=== PATIENT | male | born 1980 | race Caucasian/White ===

== ENCOUNTER 2019-02-17 23:17 | Emergency (ER) | payer MEDICARE, MEDICAID, SELFPAY ==
[2019-02-17 23:26] VITALS: BP 134/89; PULSE 146; RESP 18; O2SAT 97; BMI 30.7
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
[2019-02-18 02:32] VITALS: BP 132/84; PULSE 108; RESP 14; O2SAT 97
[2019-02-18] MEDS: tetanus-diphtheria tox (adult) 0.5 mL SDV IM (03:38)
[2019-02-18 06:01] VITALS: BP 128/82; PULSE 84; RESP 14; TEMP 36.6; O2SAT 99
== END 2019-02-18 05:58 | disposition home or self-care (01) ==
PROVIDERS: Emergency Provider Emergency Medicine
DX: S00.83XA Contusion of other part of head, initial encounter (principal); S40.022A Contusion of left upper arm, initial encounter; S40.021A Contusion of right upper arm, initial encounter; S80.12XA Contusion of left lower leg, initial encounter; S80.11XA Contusion of right lower leg, initial encounter; Y08.02XA Assault by strike by baseball bat, initial encounter; F17.210 Nicotine dependence, cigarettes, uncomplicated; Z23 Encounter for immunization
CPT/HCPCS: 70486; 73562; 90714; 96372; 99281

== ENCOUNTER 2019-07-06 20:02 | Inpatient (IN) | payer MEDICARE, MEDICAID, SELFPAY ==
[2019-07-06 20:03] VITALS: BP 124/83; PULSE 108; RESP 16; TEMP 37; O2SAT 93; BMI 27.8
--- NOTE | 2019-07-06 20:17 | W.ED.ANXIETY ---
HPI - Anxiety General: Chief Complaint: Anxiety Stated Complaint: ANXIETY/ STRESS Time Seen by Provider: 07/06/19 20:03 History of Present Illness: HPI narrative: Patient is a 39-year-old male who comes in today complaining of stress. He has had suicidal thoughts and yesterday took he says a handful of Tylenol PM in a suicide attempt. He cannot tell me exactly when he took it but it was sometime yesterday evening. He said he has had some nausea and has not felt great today but no specific abdominal pain or vomiting. He has not taken his regular medications today which include lisinopril and omeprazole. He is still having suicidal thoughts but denies doing anything else to harm himself. He is not having any thoughts of harming anyone else. complaint: anxiety Onset (ago): week(s) Severity: severe Quality: constant Provoking factors: emotional stress Relieving factors: nothing Exacerbating factors: nothing Associated symptoms: Reports other (Suicidal thoughts and an overdose); Deny chest pain, chills, fever(s), headache(s), malaise, nausea or vomiting Review of Systems General: Reports: 10 or more systems reviewed and unremarkable except in HPI and below Const: Denies: fever(s), chills, fatigue or malaise Eyes: Denies: change in vision ENMT: Denies: odynophagia Card: Denies: chest pain or swelling of feet/ankles Resp: Denies: dyspnea, productive cough or non-productive cough GI: Denies: abdominal pain, nausea or vomiting : Denies: flank pain Musc: Reports: joint pain (Both shoulders); Denies: neck pain or back pain Skin/Breast: Denies: rash Neuro: Denies: headache(s), numbness in extremities or weakness in extremities Psych: Reports: anxiety, depression, mood swings, sleeping less, irritability and suicidal ideation; Denies: homicidal ideation Chema/Lymph: Denies: easy bruising or easy bleeding PFSH ED PFSH: Social History Smoking and tobacco status: current every day smoker Physical Exam Const: COMMON NORMALS: no acute distress, patient oriented x3, no limitations and alert GENERAL APPEARANCE: cooperative and comfortable HENMT: HEAD & SCALP: normal to inspection FACE & SINUS: normal facial exam Eye: GENERAL EYE: appearance normal, both eyes and all related structures Neck/C-Spine: COMMON NORMALS: supple, no meningeal signs and no JVD Chest: COMMONS NORMALS: normal inspection of the chest Resp: COMMON NORMALS: normal respiratory effort, No use of accessory muscles and clear to auscultation bilaterally AUSCULTATION: clear to auscultation bilaterally Cardio: COMMON NORMALS: no JVD, regular rate, regular rhythm and No murmurs present (Cardio) RATE: regular rate RHYTHM: regular rhythm GI: COMMON NORMALS: Normal to inspection, nondistended, normoactive bowel sounds present, Soft to palpation and non-tender INSPECTION: Yes normal to inspection AUSCULTATION: Yes normoactive bowel sounds PALPATION: Yes Soft to palpation Back/Pelvis: COMMON NORMALS: thoracic and lumbar spine normal to inspection Extremity: COMMON NORMALS: normal to inspection Neuro: COMMON NORMALS: patient oriented x3, moves all extremities, no focal motor deficits and no sensory deficits noted SENSORIUM/ORIENTATION: Yes alert MENINGEAL SIGNS: Yes no meningeal signs Psych: COMMON NORMALS: mental status grossly normal, cooperative and speech normal ATTITUDE: Yes agitated ACTIVITY/MOTOR BEHAVIOR: Yes psychomotor agitation SPEECH: Yes normal speech Skin: COMMON NORMALS: no rashes or lesions noted and turgor normal GENERAL SKIN EXAM: no rashes or lesions noted and turgor normal Course ED course: Patient with suicidal ideation - voluntary admission. He shows no signs of acetaminophen toxicity from his reported ingestion last night. Admitted to the NPU to Dr. Mckeon. Vital Signs: Vital signs: Vital Signs Temperature 98.6 F 07/06/19 20:03 Pulse Rate 108 H 07/06/19 20:03 Respiratory Rate 16 07/06/19 20:03 Blood Pressure 124/83 07/06/19 20:03 Pulse Oximetry 93 07/06/19 20:03 MDM - Anxiety Lab Data: Labs: Lab Results 07/06/19 07/06/19 07/06/19 Range/Units 20:15 20:15 20:15 WBC 7.8 (4.0-10.0) 10^3/ uL RBC 5.08 (4.1-5.3) 10^6/u L Hgb 14.1 (11.7-16.6) g/dL Hct 43.1 (42.0-52.0) % MCV 84.8 (80-94) fL MCH 27.8 L (28.0-34.0) pg MCHC 32.7 (30.0-36.0) g/dL RDW 14.2 (12.1-15.1) % Plt Count 321 (130-400) 10^3/c mm MPV 9.2 (7.4-10.4) fL Neut % (Auto) 72.6 % Lymph % (Auto) 19.5 % [place] % (Auto) 6.6 % Eos % (Auto) 0.4 % Baso % (Auto) 0.6 % Neut # (Auto) 5.6 (1.8-7.7) 10^3/u L Lymph # (Auto) 1.5 (0.8-4.8) 10^3/u L [place] # (Auto) 0.5 (0.2-0.9) 10^3/u L Eos # (Auto) 0.0 (0.0-0.8) 10^3/u L Baso # (Auto) 0.1 (0.0-0.1) 10^3/u L Nucleated RBC % (a uto) 0 % Nucleated RBCs # 0.0 /100WBC PT 12.70 (10.5-13.3) SECO NDS INR 0.92 (0.8-1.2) Sodium 141 (136-145) mmol/L Potassium 3.9 (3.5-5.1) mmol/L Chloride 101 (98-107) mmol/L Carbon Dioxide 22 (22-29) mmol/L Anion Gap 21.9 H (5-19) BUN 25 H (6-20) mg/dL Creatinine 1.2 (0.7-1.2) mg/dL GFR Calculation 67.8 L (90-130) mL/min Glucose 138 H (65-115) mg/dL Calculated Osmolal ity 291 (285-295) mOsm/k g Calcium 9.7 (8.5-10.5) mg/dL Total Bilirubin 0.3 (0.15-1.2) mg/dL AST 49 H (0-40) U/L ALT 29 (0-41) U/L Alkaline Phosphata se 101 (40-130) IU/L Total Protein 7.8 (6.6-8.7) g/dL Albumin 5.0 (3.5-5.2) g/dL Globulin 2.8 (1.3-4.6) g/dL TSH 2.38 (0.27-4.20) uIU/ mL Urine Color (Yellow) Urine Appearance (CLEAR) Urine pH (5-7) Ur Specific Gravit y (1.005-1.030) Urine Protein (Negative) Urine Glucose (UA) (Normal) Urine Ketones (Negative) Urine Blood (Negative) Urine Nitrate (Negative) Urine Bilirubin (NEGATIVE) Urine Urobilinogen (Negative) mg/dL Ur Leukocyte Mariangel ase (Negative) Salicylates < 5.0 (3-10) mg/dL Urine Opiates Scre en (Negative) ng/mL Acetaminophen < 10.0 L (10-30) ug/mL Ur Barbiturates Sc reen (Negative) ng/mL Ur Phencyclidine S crn (Negative) ng/mL Ur Amphetamines Sc reen (Negative) ng/mL U Benzodiazepines Scrn (Negative) ng/mL Urine Cocaine Scre en (Negative) ng/mL U Marijuana (THC) Screen (Negative) ng/mL Ethyl Alcohol < 10 (0-10) mg/dL 07/06/19 07/06/19 Range/Units 20:44 20:44 WBC (4.0-10.0) 10^3/ uL RBC (4.1-5.3) 10^6/u L Hgb (11.7-16.6) g/dL Hct (42.0-52.0) % MCV (80-94) fL MCH (28.0-34.0) pg MCHC (30.0-36.0) g/dL RDW (12.1-15.1) % Plt Count (130-400) 10^3/c mm MPV (7.4-10.4) fL Neut % (Auto) % Lymph % (Auto) % [place] % (Auto) % Eos % (Auto) % Baso % (Auto) % Neut # (Auto) (1.8-7.7) 10^3/u L Lymph # (Auto) (0.8-4.8) 10^3/u L [place] # (Auto) (0.2-0.9) 10^3/u L Eos # (Auto) (0.0-0.8) 10^3/u L Baso # (Auto) (0.0-0.1) 10^3/u L Nucleated RBC % (a uto) % Nucleated RBCs # /100WBC PT (10.5-13.3) SECO NDS INR (0.8-1.2) Sodium (136-145) mmol/L Potassium (3.5-5.1) mmol/L Chloride (98-107) mmol/L Carbon Dioxide (22-29) mmol/L Anion Gap (5-19) BUN (6-20) mg/dL Creatinine (0.7-1.2) mg/dL GFR Calculation (90-130) mL/min Glucose (65-115) mg/dL Calculated Osmolal ity (285-295) mOsm/k g Calcium (8.5-10.5) mg/dL Total Bilirubin (0.15-1.2) mg/dL AST (0-40) U/L ALT (0-41) U/L Alkaline Phosphata se (40-130) IU/L Total Protein (6.6-8.7) g/dL Albumin (3.5-5.2) g/dL Globulin (1.3-4.6) g/dL TSH (0.27-4.20) uIU/ mL Urine Color Yellow (Yellow) Urine Appearance Clear (CLEAR) Urine pH 5 (5-7) Ur Specific Gravit y 1.025 (1.005-1.030) Urine Protein Neg (Negative) Urine Glucose (UA) Norm (Normal) Urine Ketones 1+ H (Negative) Urine Blood Neg (Negative) Urine Nitrate Negative (Negative) Urine Bilirubin Neg (NEGATIVE) Urine Urobilinogen Norm (Negative) mg/dL Ur Leukocyte Mariangel ase Negative (Negative) Salicylates (3-10) mg/dL Urine Opiates Scre en Negative (Negative) ng/mL Acetaminophen (10-30) ug/mL Ur Barbiturates Sc reen Negative (Negative) ng/mL Ur Phencyclidine S crn Negative (Negative) ng/mL Ur Amphetamines Sc reen Negative (Negative) ng/mL U Benzodiazepines Scrn Negative (Negative) ng/mL Urine Cocaine Scre en Negative (Negative) ng/mL U Marijuana (THC) Screen Negative (Negative) ng/mL Ethyl Alcohol (0-10) mg/dL Discharge Plan Discharge Prescriptions: No Action multivitamin Tablet 1 tab PO DAILY RF: 0 omeprazole 40 mg Capsule,Delayed Release(Dr/Ec) 40 mg PO DAILY RF: 0 lisinopril 10 mg Tablet 10 mg PO DAILY RF: 0 Claritin 10 mg Tablet 10 mg PO DAILY RF: 0 Coding Level of Care Code ED Sanding Machine Tender Automatic for Katelin Fwd Exam Comprehensive
[2019-07-06 20:22] LABS: Basophils # 0.1 10^3/uL (0.0-0.1); Basophils % 0.6 %; Eosinophils % 0.4 %; Hematocrit 43.1 % (42.0-52.0); Hemoglobin 14.1 g/dL (11.7-16.6); Lymphocytes # 1.5 10^3/uL (0.8-4.8); Lymphocytes % 19.5 %; Mean Corpuscular HGB Conc 32.7 g/dL (30.0-36.0); Mean Corpuscular Hemoglobin 27.8 pg (28.0-34.0); Mean Corpuscular Volume 84.8 fL (80-94); Mean Platelet Volume 9.2 fL (7.4-10.4); Monocytes # 0.5 10^3/uL (0.2-0.9); Monocytes % 6.6 %; Neutrophils # 5.6 10^3/uL (1.8-7.7); Neutrophils % 72.6 %; Nucleated Red Blood Cells % 0 %; Platelet Count 321 10^3/cmm (130-400); Red Blood Count 5.08 10^6/uL (4.1-5.3); Red Cell Distribution Width 14.2 % (12.1-15.1); White Blood Count 7.8 10^3/uL (4.0-10.0)
[2019-07-06 20:31] LABS: INR 0.92 (0.8-1.2)
[2019-07-06 20:39] LABS: Alanine Aminotransferase 29 U/L (0-41); Alkaline Phosphatase 101 IU/L (40-130); Chloride 101 mmol/L (98-107); Potassium 3.9 mmol/L (3.5-5.1); Sodium 141 mmol/L (136-145)
[2019-07-06 21:08] LABS: Add Urine Microscopic? NO
[2019-07-06 21:10] LABS: Anion Gap 21.9 (5-19); Aspartate Amino Transferase 49 U/L (0-40); Blood Urea Nitrogen 25 mg/dL (6-20); Calcium 9.7 mg/dL (8.5-10.5); Carbon Dioxide 22 mmol/L (22-29); Creatinine Clr Calc Pharmacy 96.1766; Globulin 2.8 g/dL (1.3-4.6); Glomerular Filtration Rate 67.8 mL/min (90-130); Glucose 138 mg/dL (65-115); Osmolality Calculated 291 mOsm/kg (285-295); Thyroid Stimulating Hormone 2.38 uIU/mL (0.27-4.20); Total Bilirubin 0.3 mg/dL (0.15-1.2); Total Protein 7.8 g/dL (6.6-8.7)
[2019-07-06 21:18] LABS: Alcohol Level < 10 mg/dL (0-10)
[2019-07-06 21:20] LABS: Acetaminophen < 10.0 ug/mL (10-30); Salicylate < 5.0 mg/dL (3-10)
[2019-07-06 21:21] LABS: Amphetamines Screen Urine Negative (Negative); Barbiturates Screen Urine Negative (Negative); Benzodiazepines Screen Urine Negative (Negative); Cocaine Screen Urine Negative (Negative); Opiate Screen Urine Negative (Negative); PCP Screen Urine Negative (Negative); THC Screen Urine Negative (Negative)
[2019-07-06 21:30] LABS: Blood Urine Neg (Negative); Glucose Urine UA Norm (Normal); Ketones Urine 1+ (Negative); Protein Urine Neg (Negative); Specific Gravity, Urine 1.025 (1.005-1.030); Urine Appearance Clear (CLEAR); Urine Color Yellow (Yellow); pH Urine 5 (5-7)
[2019-07-06 21:31] LABS: Bilirubin Urine Neg (NEGATIVE); Leukocyte Esterase Urine Negative (Negative); Nitrate Urine Negative (Negative); Urobilinogen Urine Norm (Negative)
[2019-07-06 22:11] VITALS: BP 125/87; PULSE 98; RESP 16; TEMP 37; O2SAT 93
[2019-07-06 22:31] VITALS: BP 125/80; PULSE 109; RESP 22; TEMP 37.2; O2SAT 95
[2019-07-07 06:00] VITALS: BP 123/78; PULSE 67; RESP 18; TEMP 36.6; O2SAT 98
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
[2019-07-07 13:59] VITALS: BP 119/80; PULSE 76; RESP 18; TEMP 36.6; O2SAT 98
[2019-07-07] MEDS: lamoTRIgine 25 mg Tablet PO (16:17)
[2019-07-07 22:00] VITALS: BP 123/79; PULSE 78; RESP 21; TEMP 36.8; O2SAT 98
[2019-07-08 06:00] VITALS: BP 115/73; PULSE 76; RESP 20; TEMP 36.4; O2SAT 97
[2019-07-08] MEDS: lamoTRIgine 25 mg Tablet PO (09:36)
[2019-07-08 14:00] VITALS: BP 133/76; PULSE 79; RESP 18; TEMP 36.9
--- NOTE | 2019-07-08 14:08 | P.PN_ITS ---
Subjective NPU Subjective: Interval history: Festus presents today reporting that he is doing okay. He denies any suicidal thoughts or intent and feels at this point that he is really adjusting to the medication. He reports that prior to hospitalization that physicians were exploring dizziness and that he is experiencing some dizziness that he thinks is related to the medication and not what was going on for. We agreed that we would take her time to evaluate that the medication is going to be functional for him. He reports that he is eating and sleeping okay. Mental Status Exam MSE Comments: This is an overweight versus obese white male with adequate dress, grooming and eye contact. No abnormal movements except for psychomotor retardation. Cooperative with exam in no acute distress. Speech was decreased rate and volume. Mood described as okay affect congruent. Thought process orga nized. Thought content: Patient denied any current suicidal or homicidal ideation, there were no delusions reported or noted, he denied any auditory or visual hallucinations. Attention and concentration appeared intact and memory appeared reliable but none were formally tested. He is alert and oriented x3. Insight and judgment are fair. Impulse control is questionable given the reported events of the previous day. Vitals/I&O/Wt Last Vital Signs Temp 97.6 F 07/08/19 06:00 Pulse 76 07/08/19 06:00 Resp 20 H 07/08/19 06:00 BP 115/73 07/08/19 06:00 Pulse Ox 97 07/08/19 06:00 Weight last 48 hrs Weight 98.94 kg Data NPU : 07/06/19 20:15 07/06/19 20:15 A&P Additional A&P Information (1) Depression: (2) Anxiety: (3) Adjustment disorder with mixed disturbance of emotions and conduct: This is a 39-year-old white male with a long history of inpatient hospitalizations, and mental health treatment without recent treatment who presents endorsing stress and desire to resume medications. 1. Continue current medications. 2. Continue every 15 minute checks for safety. 3. Encourage individual, group and milieu therapy. 4. We will continue evaluation for lethality and safety for discharge. Involuntary Hold Information 96 Hour Hold: 96 Hour Involuntary Admission: No Attestations NPU Medical Necessity Statement*: Inpatient hospitalization is medically necessary and the clinically appropriate intervention at this time. We will monitor medications and evaluate for changes. Likely length of stay 2-4 days. Coding Level of Care Code Acute Triage Licensed Practical Nurse for Katelin Roy
[2019-07-08 22:00] VITALS: BP 139/97; PULSE 68; RESP 17; TEMP 36.8; O2SAT 98
[2019-07-09 06:00] VITALS: BP 136/73; PULSE 75; RESP 16; TEMP 36.8; O2SAT 98
[2019-07-09] MEDS: lamoTRIgine 25 mg Tablet PO (08:47)
[2019-07-09 14:00] VITALS: BP 124/77; PULSE 66; RESP 18; TEMP 36.8; O2SAT 98
--- NOTE | 2019-07-09 14:49 | P.PN_ITS ---
Subjective NPU Subjective: Interval history: Festus presents today reporting that he is not feeling dizzy anymore but he does have a bit of a headache. He denies any other significant issues at this time. We discussed him following up with [facility]. He thinks they'll be really good idea discussed the risks benefits and alternatives of discharging him tomorrow and he understood and was agreeable with that plan. We once again reviewed the plan titration of Lamictal as well as covering the risk of Casey-Arash syndrome as the medication dose increases and what to do if he were to get a rash. Mental Status Exam MSE Comments: This is an overweight versus obese white male with adequate dress, grooming and eye contact. No abnormal movements except for resolving psychomotor retardation. Cooperative with exam in no acute distress. Speech was less decreased rate and volume. Mood described as a little better affect congruent. Thought process organized. Thought content: Patient denied any cu rrent suicidal or homicidal ideation, there were no delusions reported or noted, he denied any auditory or visual hallucinations. Attention and concentration appeared intact and memory appeared reliable but none were formally tested. He is alert and oriented x3. Insight and judgment are fair. Impulse control is improving. 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 1. Continue current medications. 2. Continue every 15 minute checks for safety. 3. Encourage individual, group and milieu therapy. 4. We will continue evaluation for lethality and safety for discharge. Involuntary Hold Information 96 Hour Hold: 96 Hour Involuntary Admission: No Attestations NPU Medical Necessity Statement*: Inpatient hospitalization is medically necessary and the clinically appropriate intervention at this time. We will monitor medications and evaluate for changes. Likely length of stay 1-3 days. Tentative discharge tomorrow. Coding Level of Care Code Acute Clinical Unit Coordinator for Katelin Roy
[2019-07-09] MEDS: hyDROXYzine 25 mg Capsule 50 MG PO (21:28)
[2019-07-09 21:41] VITALS: BP 138/88; PULSE 67; RESP 12; TEMP 36.7; O2SAT 98
[2019-07-10 06:00] VITALS: BP 143/89; PULSE 65; RESP 16; TEMP 36.6; O2SAT 98
[2019-07-10] MEDS: lamoTRIgine 25 mg Tablet PO (09:50)
--- NOTE | 2019-07-10 09:59 | PC.SOCIAL ---
Important Medicare Message Reviewed Important Medicare Message. Updated previously signed page 2 and gave new copy. Updated copy in chart.
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
[2019-07-10 13:52] VITALS: BP 143/89; PULSE 65; RESP 16; TEMP 36.6; O2SAT 98
== END 2019-07-10 14:30 | disposition home or self-care (01) | DRG 882 ==
LOC: ER 20:36 → NP 22:10
PROVIDERS: Emergency Medicine; Admitting Provider Psychiatry & Neurology Psychiatry; Visit Provider Psychiatry & Neurology Psychiatry
DX: F43.25 Adjustment disorder with mixed disturbance of emotions and conduct (principal); Z81.8 Family history of other mental and behavioral disorders; F17.210 Nicotine dependence, cigarettes, uncomplicated; F41.9 Anxiety disorder, unspecified; F32.9 Major depressive disorder, single episode, unspecified
CPT/HCPCS: 12345; 36415; 80053; 80306; 80307; 81003; 84443; 85025; 85610; 99282

== ENCOUNTER → 2019-07-21 10:48 | Outpatient (BNVA) | payer MEDICARE, MEDICAID, SELFPAY | PROVIDERS: Visit Provider Psychiatry & Neurology Psychiatry | DX: F33.9 Major depressive disorder, recurrent, unspecified (principal); F06.30 Mood disorder due to known physiological condition, unspecified; F43.25 Adjustment disorder with mixed disturbance of emotions and conduct; F41.9 Anxiety disorder, unspecified; F32.9 Major depressive disorder, single episode, unspecified; F34.9 Persistent mood [affective] disorder, unspecified; D51.0 Vitamin B12 deficiency anemia due to intrinsic factor deficiency | CPT/HCPCS: 99205 ==

== ENCOUNTER 2019-07-24 21:46 | Inpatient (IN) | payer MEDICARE, MEDICAID, SELFPAY ==
[2019-07-24 22:00] VITALS: BP 124/86; PULSE 95; RESP 18; TEMP 36.9; BMI 31.6
--- NOTE | 2019-07-24 22:10 | ED_ITS ---
HPI - Psych General: Chief Complaint: Psychiatric Symptoms Stated Complaint: si Time Seen by Provider: 07/24/19 22:06 Source: patient Mode of arrival: ambulatory Limitations: no limitations History of Present Illness: HPI Narrative: 39-year-old male states he has had increased depression and has had suicidal thoughts. He has no specific plan. Patient denies any worsening or improving factors. He states he has not been taking his meds for the last 2 days. MD complaint: suicidal ideation Onset (ago): hour(s) Relieving factors: none Exacerbating factors: none Associated symptoms: Reports depression and suicidal ideation Review of Systems Const: Denies: fever(s), chills, body aches or change in appetite Eyes: Denies: blurry vision or eye discomfort ENMT: Denies: throat pain or dental pain Card: Denies: chest pain Resp: Denies: dyspnea GI: Denies: abdominal pain, nausea, vomiting or diarrhea : Denies: dysuria Musc: Denies: neck pain or back pain Skin/Breast: Denies: rash Neuro: Denies: headache(s) Psych: Reports: depression and suicidal ideation Chema/Lymph: Denies: easy bruising All/Imm: Denies: urticaria PFSH ED PFSH: Social History Smoking and tobacco status: former smoker Current gender identity: Male Physical Exam Const: COMMON NORMALS: no acute distress, patient oriented x3 and healthy appearing HENMT: COMMON NORMALS: normocephalic and atraumatic HEAD & SCALP: normocephalic and atraumatic Eye: COMMON NORMALS: Equal, round and reactive pupils present and EOMs intact bilaterally PUPIL: Yes Equal, round and reactive pupils present Neck/C-Spine: COMMON NORMALS: full ROM and supple Chest: COMMONS NORMALS: normal inspection of the chest and normal palpation of entire chest wall Resp: COMMON NORMALS: normal respiratory effort, No retractions, No use of accessory muscles and clear to auscultation bilaterally AUSCULTATION: clear to auscultation bilaterally Cardio: COMMON NORMALS: regular rate, regular rhythm and No murmurs present (Cardio) RATE: regular rate RHYTHM: regular rhythm GI: COMMON NORMALS: Normal to inspection, nondistended, normoactive bowel sounds present, Soft to palpation, non-tender and no masses PALPATION: Yes Soft to palpation Extremity: COMMON NORMALS: normal to inspection and full ROM Neuro: COMMON NORMALS: patient oriented x3, moves all extremities and no focal motor deficits Psych: COMMON NORMALS: mental status grossly normal and cooperative MOOD & AFFECT: Yes depressed mood Skin: COMMON NORMALS: no rashes or lesions noted and no wounds GENERAL SKIN EXAM: no rashes or lesions noted MDM - Psych MDM Narrative: Medical decision making narrative: Patient presents here with suicidal ideation with no specific plan. Patient's also depressed. Patient is voluntary and I spoke to psychiatrist Dr. Doan and will admit. Lab Data: Labs: Lab Results 07/24/19 Range/Units 10:23 Sodium 140 (136-145) mmol/L Potassium 3.9 (3.5-5.1) mmol/L Chloride 101 (98-107) mmol/L Carbon Dioxide 25 (22-29) mmol/L Anion Gap 17.9 (5-19) BUN 18 (6-20) mg/dL Creatinine 1.0 (0.7-1.2) mg/dL GFR Calculation 83.6 L (90-130) mL/min Glucose 116 H (65-115) mg/dL Calculated Osmolal ity 287 (285-295) mOsm/k g Calcium 10.4 (8.5-10.5) mg/dL Total Bilirubin 0.5 (0.15-1.2) mg/dL AST 47 H (0-40) U/L ALT 40 (0-41) U/L Alkaline Phosphata se 97 (40-130) IU/L Total Protein 7.9 (6.6-8.7) g/dL Albumin 4.5 (3.5-5.2) g/dL Globulin 3.4 (1.3-4.6) g/dL Salicylates < 0.3 L (3-10) mg/dL Acetaminophen < 5.0 L (10-30) ug/mL Ethyl Alcohol < 10 (0-10) mg/dL Discharge Plan Discharge Patient Disposition: Admitted As Inpatient Clinical Impression: Suicidal ideation Depression Qualifiers: Depression Type: unspecified Qualified Code(s): F32.9 - Major depressive disorder, single episode, unspecified Condition: Stable Referrals: Pieter Call [Primary Care Provider] - Coding Level of Care Code ED [employer] E Business Developer for [facility] Fwd Exam Comprehensive
[2019-07-24] MEDS: LORazepam 2 mg Tablet PO (22:22)
[2019-07-24 22:25] VITALS: RESP 17
--- NOTE | 2019-07-24 22:34 | PC.NURSE ---
Patient states that he has been feeling depressed for the last three days and has been wanting to hurt himself. Patient states that he has a plan to do so by taking pills to kill himself. Patient states he is under a lot of stress at home and in his life. Patient states that he has ADHD and has not been taking all the medications he is prescribed for various symptoms.
[2019-07-24 22:50] LABS: Alanine Aminotransferase 40 U/L (0-41); Albumin Level 4.5 g/dL (3.5-5.2); Alkaline Phosphatase 97 IU/L (40-130); Anion Gap 17.9 (5-19); Aspartate Amino Transferase 47 U/L (0-40); Blood Urea Nitrogen 18 mg/dL (6-20); Calcium 10.4 mg/dL (8.5-10.5); Carbon Dioxide 25 mmol/L (22-29); Chloride 101 mmol/L (98-107); Globulin 3.4 g/dL (1.3-4.6); Glomerular Filtration Rate 83.6 mL/min (90-130); Glucose 116 mg/dL (65-115); Osmolality Calculated 287 mOsm/kg (285-295); Potassium 3.9 mmol/L (3.5-5.1); Sodium 140 mmol/L (136-145); Total Bilirubin 0.5 mg/dL (0.15-1.2); Total Protein 7.9 g/dL (6.6-8.7)
[2019-07-24 22:55] LABS: Acetaminophen < 5.0 ug/mL (10-30); Alcohol Level < 10 mg/dL (0-10); Salicylate < 0.3 mg/dL (3-10)
[2019-07-25 00:26] VITALS: BP 141/90; PULSE 85; RESP 16; O2SAT 97
[2019-07-25 01:02] VITALS: BP 125/82; PULSE 84; RESP 18; TEMP 36.6; O2SAT 95
[2019-07-25 01:03] LABS: Amphetamines Screen Urine Negative (Negative); Barbiturates Screen Urine Negative (Negative); Benzodiazepines Screen Urine Positive (Negative); Cocaine Screen Urine Negative (Negative); Opiate Screen Urine Negative (Negative); PCP Screen Urine Negative (Negative); THC Screen Urine Negative (Negative)
[2019-07-25 06:00] VITALS: BP 129/82; PULSE 70; RESP 17; TEMP 36.8; O2SAT 98
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
[2019-07-25 14:00] VITALS: BP 115/76; PULSE 86; RESP 20; TEMP 36.8; O2SAT 97
[2019-07-25] MEDS: lamoTRIgine 100 mg Tablet PO (14:09)
[2019-07-25] MEDS: lisinopril 10 mg Tablet PO (14:09)
[2019-07-25 20:57] VITALS: BP 120/77; PULSE 86; RESP 18; TEMP 36.9; O2SAT 97
[2019-07-26 06:00] VITALS: BP 126/79; PULSE 68; RESP 17; TEMP 36.6; O2SAT 97
[2019-07-26] MEDS: pantoprazole DR 40 mg Tablet PO (09:16)
[2019-07-26] MEDS: lisinopril 10 mg Tablet PO (09:17)
[2019-07-26] MEDS: lamoTRIgine 100 mg Tablet PO (09:17)
[2019-07-26 14:00] VITALS: BP 139/91; PULSE 76; RESP 18; TEMP 37.1; O2SAT 99
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
[2019-07-26 22:00] VITALS: BP 137/67; PULSE 73; RESP 16; TEMP 37; O2SAT 97
[2019-07-27 06:00] VITALS: BP 131/81; PULSE 69; RESP 16; TEMP 36.8; O2SAT 99
[2019-07-27] MEDS: pantoprazole DR 40 mg Tablet PO (08:07)
[2019-07-27] MEDS: lamoTRIgine 100 mg Tablet PO (08:07)
[2019-07-27] MEDS: lisinopril 10 mg Tablet PO (08:08)
[2019-07-27] MEDS: acetaminophen 325 mg Tablet 650 MG PO (11:33)
[2019-07-27 14:00] VITALS: BP 103/68; PULSE 66; RESP 17; TEMP 36.8; O2SAT 94
--- NOTE | 2019-07-27 14:41 | PM.NPN ---
Subjective NPU Subjective: Interval history: Pt without complaint. Pursuing discharge destination. Mental Status Exam MSE Comments: Mental Status Exam: The patient is an alert interpersonally engaged male appearing approximately his stated age. He has some bruising around his right eye. Eye contact is good. Psychomotoric activity is within normal limits. Appearance: hygiene is fair; no gross neurological deficits., gait is unremarkable; AIMS=0 Speech: Speech is of normal rate and rhythm and easily understood. He answers questions with full discourse and provide supplemental information at his discretion. Thought processes: Thought processes are abstract and linear. Judgment is adequate for safety. Associations: intact Psychotic processes: There is no indication of guarding or paranoia. There is no attention to the internal stimuli. Auditory and visual hallucinations are denied. Judgment: Insight is fair. Problem solving skills are adequate for safety. Orientation: The patient is oriented to person, place time and situation. Memory: no deficits noted in immediate, intermediate, or remote spheres. Attention: The patient is alert and interpersonally engaged. Language: Verbalizations are coherent. Fund of knowledge: Fund of knowledge is adequate. Affect/Mood: Affect is consistent with a euthymic mood. He denied suicidal ideation Affective range is appropriate. Psychosis: perception unimpaired except through cognitive distortion; reality testing intact. Cognition: Patient Appearance: Appropriate Level of Consciousness: Awake, Alert, Appropriate and Follows Commands Patient Cognition Impaired: No Ability to Follow Directions: Excellent Patient Orientation (long list): Person, Place, Name, Age and Month Hallucination Type: None Delusion Description: Not Present Thought Process: Appropriate Affect: Affect Description: Calm Depressive Symptoms: Difficulty Making Decisions, Hopelessness, Increased Irritability, Recurrent Thoughts of or Suicide and Unhappiness Behavior: Patient Behavior: Appropriate Speech Pattern: Clear Vitals/I&O/Wt Last Vital Signs Temp 98.3 F 07/27/19 06:00 Pulse 69 07/27/19 06:00 Resp 16 07/27/19 06:00 BP 131/81 07/27/19 06:00 Pulse Ox 99 07/27/19 06:00 Data NPU : 07/24/19 10:23 A&P Assessment and plan (1) Adjustment disorder with depressed mood: Status: Acute Additional A&P Information Treatment plan: Due to the psychiatric conditions and treatment listed in the Assessment and Plan - the patient requires continued hospitalization. Will provide a safe and therapeutic environment for patient.. Will continue inpatient treatment to allow for medication adjustment and monitoring. Will continue q15 min safety checks. Will continue current medications and monitor for medication side effects. Lamictal was increased to 100 mg daily. Patient will be given a trial of imipramine 50 mg at bedtime to improve sleep and hopefully reduce his level of irritability during the day. Hospital day #3: Patient reports good response to medication without side effects. Patient is searching for a place to stay as he is currently homeless. Plan: No changes at this time. Hospital day #4: Patient searching for discharge destination Monitor patient's mood, sleep, appetite, and behavior closely. Encourage patient to participate in individual and group therapeutic sessions on the guillaume. Estimated length of stay 5 days The expected benefits and potential side effects of patient's psychiatric medications were discussed with the patient. The patient understands and consents to treatment.CRITERIA FOR DISCHARGE: stable on medications and no longer an im Involuntary Hold Information 96 Hour Hold: 96 Hour Involuntary Admission: No Attestations NPU Medical Necessity Statement*: Patient will remain in the hospital 1 more night for medication efficacy and side effect assessment. Coding Level of Care Code Acute Plaster And Stucco Worker for Katelin Roy Diagnoses Adjustment disorder with depressed mood F43.21
[2019-07-27 21:43] VITALS: BP 130/83; PULSE 78; RESP 22; TEMP 37; O2SAT 97
[2019-07-28 06:00] VITALS: BP 120/74; PULSE 73; RESP 20; TEMP 36.7; O2SAT 99
[2019-07-28] MEDS: lamoTRIgine 100 mg Tablet PO (08:10)
[2019-07-28] MEDS: pantoprazole DR 40 mg Tablet PO (08:10)
[2019-07-28] MEDS: lisinopril 10 mg Tablet PO (08:10)
--- NOTE | 2019-07-28 08:36 | PM.NPN ---
Subjective NPU Subjective: Interval history: I need something for my concentration. He says that his lack of concentration gets him into trouble out there and it increases the likelihood that he is going to use again. He claims to have been diagnosed with ADHD but gives no indication that he is actually ever had an assessment. Pursuing discharge destination. Mental Status Exam MSE Comments: Mental Status Exam: The patient is an alert interpersonally engaged male appearing approximately his stated age. He has some bruising around his right eye. Eye contact is good. Psychomotoric activity is within normal limits. Appearance: hygiene is fair; no gross neurological deficits., gait is unremarkable; AIMS=0 Speech: Speech is of normal rate and rhythm and easily understood. He answers questions with full discourse and provide supplemental information at his discretion. Thought processes: Thought processes are abstract and linear. Judgment is adequate for safety. Associations: intact Psychotic processes: There is no indication of guarding or paranoia. There is no attention to the internal stimuli. Auditory and visual hallucinations are denied. Judgment: Insight is fair. Problem solving skills are adequate for safety. Orientation: The patient is oriented to person, place time and situation. Memory: no deficits noted in immediate, intermediate, or remote spheres. Attention: The patient is alert and interpersonally engaged. Language: Verbalizations are coherent. Fund of knowledge: Fund of knowledge is adequate. Affect/Mood: Affect is consistent with a euthymic mood. He denied suicidal ideation Affective range is appropriate. Psychosis: perception unimpaired except through cognitive distortion; reality testing intact. Cognition: Patient Appearance: Appropriate Level of Consciousness: Awake, Alert, Appropriate and Follows Commands Patient Cognition Impaired: No Ability to Follow Directions: Excellent Patient Orientation (long list): Person, Place, Name, Age and Month Hallucination Type: None Delusion Description: Not Present Thought Process: Appropriate Affect: Affect Description: Calm Depressive Symptoms: Difficulty Making Decisions, Hopelessness, Increased Irritability, Recurrent Thoughts of or Suicide and Unhappiness Behavior: Patient Behavior: Appropriate Speech Pattern: Clear Vitals/I&O/Wt Last Vital Signs Temp 98.0 F 07/28/19 06:00 Pulse 73 07/28/19 06:00 Resp 20 H 07/28/19 06:00 BP 120/74 07/28/19 06:00 Pulse Ox 99 07/28/19 06:00 Data NPU : 07/24/19 10:23 A&P Assessment and plan (1) Adjustment disorder with depressed mood: Status: Acute Additional A&P Information Treatment plan: Due to the psychiatric conditions and treatment listed in the Assessment and Plan - the patient requires continued hospitalization. Will provide a safe and therapeutic environment for patient.. Will continue inpatient treatment to allow for medication adjustment and monitoring. Will continue q15 min safety checks. Will continue current medications and monitor for medication side effects. Lamictal was increased to 100 mg daily. Patient will be given a trial of imipramine 50 mg at bedtime to improve sleep and hopefully reduce his level of irritability during the day. Hospital day #3: Patient reports good response to medication without side effects. Patient is searching for a place to stay as he is currently homeless. Plan: No changes at this time. Hospital day #4: Patient searching for discharge destination Hospital day #5: Patient may benefit from low-dose Wellbutrin for both for concentration and depression. However there is no indication that stimulant medication would be indicated in this patient with undiagnosed ADHD and a substance abuse history. Patient will be discharged tomorrow. Monitor patient's mood, sleep, appetite, and behavior closely. Encourage patient to participate in individual and group therapeutic sessions on the guillaume. Estimated length of stay 5 days The expected benefits and potential side effects of patient's psychiatric medications were discussed with the patient. The patient understands and consents to treatment.CRITERIA FOR DISCHARGE: stable on medications and no longer an im Involuntary Hold Information 96 Hour Hold: 96 Hour Involuntary Admission: No Attestations NPU Medical Necessity Statement*: Patient will remain in the hospital another 2-4 nights for assessment of medication efficacy and tolerability. Coding Level of Care Code Acute Textile Science Technician for Katelin Roy Diagnoses Adjustment disorder with depressed mood F43.21
[2019-07-28] MEDS: buPROPion SR (12 HR) 100 mg Tablet PO (09:16)
[2019-07-28 14:00] VITALS: BP 121/79; PULSE 73; RESP 20; TEMP 36.7; O2SAT 96
[2019-07-28 21:37] VITALS: BP 110/73; PULSE 61; RESP 22; TEMP 36.8; O2SAT 98
[2019-07-29 06:00] VITALS: BP 109/70; PULSE 70; RESP 18; TEMP 36.7; O2SAT 97
[2019-07-29] MEDS: lamoTRIgine 100 mg Tablet PO (08:37)
[2019-07-29] MEDS: lisinopril 10 mg Tablet PO (08:37)
[2019-07-29] MEDS: buPROPion SR (12 HR) 100 mg Tablet PO (08:37)
[2019-07-29] MEDS: pantoprazole DR 40 mg Tablet PO (08:37)
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
[2019-07-29 09:07] VITALS: BP 109/70; PULSE 70; RESP 18; TEMP 36.7; O2SAT 97
== END 2019-07-29 09:52 | disposition home or self-care (01) | DRG 881 ==
LOC: ER 22:42 → NP 23:54
PROVIDERS: Emergency Medicine; Admitting Provider Psychiatry & Neurology Psychiatry; Visit Provider Psychiatry & Neurology Psychiatry
DX: F43.21 Adjustment disorder with depressed mood (principal); R45.851 Suicidal ideations; Z59.0 Homelessness; Z87.891 Personal history of nicotine dependence
CPT/HCPCS: 12345; 36415; 80053; 80306; 80307; 99205; 99284

== ENCOUNTER 2019-08-04 13:58 | Outpatient (CLI) | payer MEDICARE, MEDICAID, SELFPAY ==
--- NOTE | 2019-08-04 14:33 | ECG_ITS ---
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 Measurements Intervals [place] Rate: 77 P: 52 MT: 128 QRS: 54 QRSD: 94 T: 55 QT: 357 QTc: 406 Interpretive Statements SINUS RHYTHM WITH OCCASIONAL SUPRAVENTRICULAR PREMATURE COMPLEXES No previous ECG available for comparison Electronically Signed On 08-05-2019 23:01:43 CDT by Kenisha Wright M.D. [id number]
[2019-08-04 14:58] LABS: Blood Urea Nitrogen 15 mg/dL (6-20); Calcium 9.9 mg/dL (8.5-10.5); Carbon Dioxide 26 mmol/L (22-29); Chloride 102 mmol/L (98-107); Glomerular Filtration Rate 94.4 mL/min (90-130); Glucose 104 mg/dL (65-115); Osmolality Calculated 287 mOsm/kg (285-295); Sodium 140 mmol/L (136-145)
[2019-08-04 17:07] LABS: Basophils # 0.1 10^3/uL (0.0-0.1); Basophils % 0.9 %; Eosinophils # 0.1 10^3/uL (0.0-0.8); Eosinophils % 1.4 %; Hematocrit 41.2 % (42.0-52.0); Lymphocytes # 1.3 10^3/uL (0.8-4.8); Lymphocytes % 22.8 %; Mean Corpuscular HGB Conc 31.6 g/dL (30.0-36.0); Mean Corpuscular Hemoglobin 28.1 pg (28.0-34.0); Mean Platelet Volume 9.7 fL (7.4-10.4); Monocytes # 0.3 10^3/uL (0.2-0.9); Monocytes % 5.3 %; Neutrophils % 69.2 %; Nucleated Red Blood Cells % 0 %; Platelet Count 300 10^3/cmm (130-400); Red Blood Count 4.63 10^6/uL (4.1-5.3); Red Cell Distribution Width 13.9 % (12.1-15.1); White Blood Count 5.7 10^3/uL (4.0-10.0)
== END 2019-08-04 13:59 | disposition home or self-care (01) ==
LOC: LAB 14:03
PROVIDERS: Visit Provider Specialist
DX: I49.1 Atrial premature depolarization (principal)
CPT/HCPCS: 36415; 80048; 85025; 93005

== ENCOUNTER 2019-08-04 14:19 | Outpatient (CLI) | payer MEDICARE, MEDICAID, SELFPAY ==
[2019-08-04 15:54] LABS: Thyroid Stimulating Hormone 1.04 uIU/mL (0.27-4.20); Vitamin B12 332 pg/mL (232-1245)
[2019-08-04 17:52] LABS: Folate Level > 20.0 ng/mL (4.5-32.2)
[2019-08-08 06:53] LABS: T4 Total 9.9 mcg/dL (4.9-10.5)
[2019-08-09 19:30] LABS: Zinc Level, Serum or Plasma 74 mcg/dL (60-130)
== END 2019-08-04 14:20 | disposition home or self-care (01) ==
PROVIDERS: Visit Provider Psychiatry & Neurology Psychiatry
DX: D51.0 Vitamin B12 deficiency anemia due to intrinsic factor deficiency (principal); F32.9 Major depressive disorder, single episode, unspecified; F41.9 Anxiety disorder, unspecified; F43.25 Adjustment disorder with mixed disturbance of emotions and conduct
CPT/HCPCS: 82525; 82607; 82746; 84436; 84443; 84630

== ENCOUNTER → 2019-08-30 10:03 | Outpatient (BNVA) | payer MEDICARE, MEDICAID, SELFPAY | PROVIDERS: Referring Provider Nurse Practitioner Family; Visit Provider Nurse Practitioner | DX: R42 Dizziness and giddiness (principal); Z51.81 Encounter for therapeutic drug level monitoring | CPT/HCPCS: 99204 ==

== ENCOUNTER → 2019-09-05 07:49 | Outpatient (BNVA) | payer MEDICARE, MEDICAID, SELFPAY | PROVIDERS: Visit Provider Nurse Practitioner Psychiatric/Mental Health | DX: F43.25 Adjustment disorder with mixed disturbance of emotions and conduct (principal); F41.9 Anxiety disorder, unspecified | CPT/HCPCS: 99213 ==

== ENCOUNTER 2019-09-11 11:26 | Outpatient (CLI) | payer MEDICARE, MEDICAID, SELFPAY ==
--- NOTE | 2019-09-11 11:45 | MR_ITS ---
WS: [id number] MRI HEAD WITH CONTRAST TECHNIQUE: Sagittal T1, T2 axial, T2 axial FLAIR, axial susceptibility weighted imaging, axial diffus ion weighted images, and coronal T2 images were obtained. Pre and post-T1 axial and post T1 coronal i mages. ADC and FSPGR images. CLINICAL INFORMATION: DX COMPARISON: None. FINDINGS: No evidence of restricted diffusion to suggest acute ischemia. Ventricular system and basal cisterns are patent. No suspicious intracranial signal abnormalities. Normal perez-white differentiation. Ibis l posterior fossa. Normal vascular flow voids at the skull base. No extra-axial fluid collections. Ma stoid air cells are well aerated. Mild mucosal thickening in the left frontoethmoidal recess and ethm oid air cells. Normal optic chiasm and pituitary infundibulum. Temporal lobes and hippocampal formati ons are normal in appearance. No abnormal intracranial enhancement. Normal dural venous sinuses. Normal optic chiasm and pituitary infundibulum. No hemosiderin on the susceptibly weighted images. MR/MR head wo/w con [id number] IMPRESSION: 1. No evidence of restricted diffusion to suggest acute ischemia. 2. No suspicious intracranial signal abnormalities. 3. No abnormal gadolinium enhancement. 4. Normal optic chiasm and pituitary infundibulum. 5. Mild mucosal thickening ethmoid air cells and left frontal ethmoidal recess .
== END 2019-09-11 11:27 | disposition home or self-care (01) ==
LOC: RADSHAW 11:32
PROVIDERS: Visit Provider Nurse Practitioner
DX: R42 Dizziness and giddiness (principal)
CPT/HCPCS: 70553; A9579

== ENCOUNTER 2019-09-13 22:16 | Emergency (ER) | payer MEDICARE, MEDICAID, SELFPAY ==
[2019-09-13 22:38] VITALS: BP 137/90; PULSE 107; RESP 18; TEMP 36.7; O2SAT 97; BMI 31.5
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
[2019-09-13 23:16] LABS: Basophils # 0.1 10^3/uL (0.0-0.1); Basophils % 0.6 %; Eosinophils # 0.1 10^3/uL (0.0-0.8); Eosinophils % 1.4 %; Hematocrit 41.5 % (42.0-52.0); Hemoglobin 13.5 g/dL (11.7-16.6); Lymphocytes # 1.7 10^3/uL (0.8-4.8); Lymphocytes % 19.2 %; Mean Corpuscular HGB Conc 32.5 g/dL (30.0-36.0); Mean Corpuscular Hemoglobin 28.5 pg (28.0-34.0); Mean Corpuscular Volume 87.6 fL (80-94); Mean Platelet Volume 9.3 fL (7.4-10.4); Monocytes # 0.6 10^3/uL (0.2-0.9); Monocytes % 6.4 %; Neutrophils # 6.34 10^3/uL (1.8-7.7); Neutrophils % 72.1 %; Nucleated Red Blood Cells % 0 %; Platelet Count 305 10^3/cmm (130-400); Red Blood Count 4.74 10^6/uL (4.1-5.3); White Blood Count 8.8 10^3/uL (4.0-10.0)
[2019-09-13] MEDS: tetanus-dipt-pertussis 0.5 mL SDV IM (23:22)
[2019-09-13 23:25] VITALS: BP 133/87; PULSE 82; RESP 18; O2SAT 98
[2019-09-13] MEDS: LORazepam 1 mg Tablet PO (23:25)
[2019-09-13 23:27] LABS: Acetaminophen < 5.0 ug/mL (10-30); Alanine Aminotransferase 31 U/L (0-41); Albumin Level 4.8 g/dL (3.5-5.2); Alcohol Level < 10 mg/dL (0-10); Alkaline Phosphatase 114 IU/L (40-130); Anion Gap 16.1 (5-19); Aspartate Amino Transferase 42 U/L (0-40); Blood Urea Nitrogen 23 mg/dL (6-20); Calcium 9.9 mg/dL (8.5-10.5); Carbon Dioxide 25 mmol/L (22-29); Chloride 103 mmol/L (98-107); Glomerular Filtration Rate 61.8 mL/min (90-130); Glucose 104 mg/dL (65-115); Osmolality Calculated 287 mOsm/kg (285-295); Potassium 4.1 mmol/L (3.5-5.1); Salicylate < 0.3 mg/dL (3-10); Sodium 140 mmol/L (136-145); Total Bilirubin 0.3 mg/dL (0.15-1.2); Total Protein 7.8 g/dL (6.6-8.7)
--- NOTE | 2019-09-14 08:46 | PC.SOCIAL ---
Called Gris at [facility]. Patient already has appointments set up. Is scheduled for phone visit with Anahi Flores on 10/02/2019 3:30pm and has appointment for Counseling with Nanda at 3:30 as well. Left message for patient to return call. If patient does call will make sure he is aware of appointments and make sure has [facility] number.
--- NOTE | 2019-11-10 15:03 | DCPLANNER ---
Patient had a follow up appointment scheduled for 10.02.19 for medications at [facility] - patient did attend Patient had a follow up appointment scheduled for 10.04.19 for therapy - patient did attend appointment.
== END 2019-09-13 23:27 | disposition home or self-care (01) ==
PROVIDERS: Emergency Provider Emergency Medicine
DX: F32.9 Major depressive disorder, single episode, unspecified (principal); F41.9 Anxiety disorder, unspecified; F17.210 Nicotine dependence, cigarettes, uncomplicated; S30.811A Abrasion of abdominal wall, initial encounter; X58.XXXA Exposure to other specified factors, initial encounter
CPT/HCPCS: 12345; 36415; 80053; 80307; 85025; 90471; 90715; 99284

== ENCOUNTER → 2019-10-02 08:54 | Outpatient (BNVA) | payer MEDICARE, MEDICAID, SELFPAY | PROVIDERS: Visit Provider Nurse Practitioner Psychiatric/Mental Health | DX: F43.25 Adjustment disorder with mixed disturbance of emotions and conduct (principal); F41.9 Anxiety disorder, unspecified | CPT/HCPCS: 99212 ==

== ENCOUNTER 2019-10-26 02:57 | Inpatient (IN) | payer MEDICARE, MEDICAID, SELFPAY ==
[2019-10-26 03:14] VITALS: BP 149/117; PULSE 114; RESP 16; TEMP 37.4; O2SAT 99; BMI 31.4
--- NOTE | 2019-10-26 03:19 | W.ED.ANXIETY ---
HPI - Anxiety General: Chief Complaint: Anxiety Stated Complaint: anxiety Time Seen by Provider: 10/26/19 03:14 Source: patient Mode of arrival: ambulatory Limitations: no limitations History of Present Illness: HPI narrative: 39-year-old male who has a history of anxiety and psychiatric issues. He states he has been having increased anxiety he lost his meds for a while and had been taken. He states he feels extremely stressed out. He states he voluntarily wants to go to psychiatric unit. He denies any active suicidal or homicidal thoughts. MD complaint: anxiety Associated symptoms: Deny chest pain, chills, fever(s), headache(s), nausea or vomiting Review of Systems Const: Denies: fever(s), chills, body aches or change in appetite Eyes: Denies: blurry vision or eye discomfort ENMT: Denies: throat pain or dental pain Card: Denies: chest pain Resp: Denies: dyspnea GI: Denies: abdominal pain, nausea, vomiting or diarrhea : Denies: dysuria Musc: Denies: neck pain or back pain Skin/Breast: Denies: rash Neuro: Denies: headache(s) Psych: Reports: anxiety Chema/Lymph: Denies: easy bruising All/Imm: Denies: urticaria PFSH ED PFSH: Family History Mother Hypertension Father Diabetes Social History Smoking and tobacco status: current every day smoker cigarettes [ Other cigarette details: vape as well ] History of recent travel: No Current gender identity: Male Physical Exam Const: COMMON NORMALS: no acute distress, patient oriented x3 and healthy appearing HENMT: COMMON NORMALS: normocephalic and atraumatic HEAD & SCALP: normocephalic and atraumatic Eye: COMMON NORMALS: Equal, round and reactive pupils present and EOMs intact bilaterally PUPIL: Yes Equal, round and reactive pupils present Neck/C-Spine: COMMON NORMALS: full ROM and supple Chest: COMMONS NORMALS: normal inspection of the chest and normal palpation of entire chest wall Resp: COMMON NORMALS: normal respiratory effort, No retractions, No use of accessory muscles and clear to auscultation bilaterally AUSCULTATION: clear to auscultation bilaterally Cardio: COMMON NORMALS: regular rate, regular rhythm and No murmurs present (Cardio) RATE: regular rate RHYTHM: regular rhythm GI: COMMON NORMALS: Normal to inspection, nondistended, normoactive bowel sounds present, Soft to palpation, non-tender and no masses PALPATION: Yes Soft to palpation Extremity: COMMON NORMALS: normal to inspection and full ROM Neuro: COMMON NORMALS: patient oriented x3, moves all extremities and no focal motor deficits Psych: COMMON NORMALS: mental status grossly normal, Normal thought process present and cooperative ATTITUDE: Yes paranoid ACTIVITY/MOTOR BEHAVIOR: Yes fidgeting MOOD & AFFECT: Yes anxious THOUGHT PROCESS: Normal thought process present Skin: COMMON NORMALS: no rashes or lesions noted and no wounds GENERAL SKIN EXAM: no rashes or lesions noted Course Vital Signs: Vital signs: Vital Signs Temperature 99.3 F 10/26/19 03:14 Pulse Rate 114 H 10/26/19 03:14 Respiratory Rate 16 10/26/19 03:14 Blood Pressure 149/117 10/26/19 03:14 Pulse Oximetry 99 10/26/19 03:14 MDM - Anxiety MDM Narrative: Medical decision making narrative: Patient presents here with stress and anxiety. He is voluntarily wanting to be admitted to the psychiatric unit. Patient is medically cleared I spoke to physician on-call and will admit to the psych unit. Patient has been stable while here. Lab Data: Labs: Lab Results 10/26/19 10/26/19 10/26/19 Range/Units 03:54 03:54 03:54 WBC 10.4 H (4.0-10.0) 10^3/ uL RBC 5.33 H (4.1-5.3) 10^6/u L Hgb 14.8 (11.7-16.6) g/dL Hct 45.9 (42.0-52.0) % MCV 86.1 (80-94) fL MCH 27.8 L (28.0-34.0) pg MCHC 32.2 (30.0-36.0) g/dL RDW 12.5 (12.1-15.1) % Plt Count 387 (130-400) 10^3/c mm MPV 9.3 (7.4-10.4) fL Neut % (Auto) 64.2 % Lymph % (Auto) 26.2 % [place] % (Auto) 7.8 % Eos % (Auto) 0.9 % Baso % (Auto) 0.7 % Neut # (Auto) 6.66 (1.8-7.7) 10^3/u L Lymph # (Auto) 2.7 (0.8-4.8) 10^3/u L [place] # (Auto) 0.8 (0.2-0.9) 10^3/u L Eos # (Auto) 0.1 (0.0-0.8) 10^3/u L Baso # (Auto) 0.1 (0.0-0.1) 10^3/u L Nucleated RBC % (a uto) 0 % Nucleated RBCs # 0.0 /100WBC Sodium 140 (136-145) mmol/L Potassium 3.9 (3.5-5.1) mmol/L Chloride 100 (98-107) mmol/L Carbon Dioxide 28 (22-29) mmol/L Anion Gap 15.9 (5-19) BUN 21 H (6-20) mg/dL Creatinine 1.0 (0.7-1.2) mg/dL GFR Calculation 83.6 L (90-130) mL/min Glucose 110 (65-115) mg/dL Calculated Osmolal ity 287 (285-295) mOsm/k g Calcium 9.5 (8.5-10.5) mg/dL Total Bilirubin 0.3 (0.15-1.2) mg/dL AST 34 (0-40) U/L ALT 23 (0-41) U/L Alkaline Phosphata se 135 H (40-130) IU/L Total Protein 8.8 H (6.6-8.7) g/dL Albumin 4.9 (3.5-5.2) g/dL Globulin 3.9 (1.3-4.6) g/dL Salicylates 0.7 L (3-10) mg/dL Urine Opiates Scre en Negative (Negative) ng/mL Acetaminophen < 5.0 L (10-30) ug/mL Ur Barbiturates Sc reen Negative (Negative) ng/mL Ur Phencyclidine S crn Negative (Negative) ng/mL Ur Amphetamines Sc reen Negative (Negative) ng/mL U Benzodiazepines Scrn Negative (Negative) ng/mL Urine Cocaine Scre en Negative (Negative) ng/mL U Marijuana (THC) Screen Negative (Negative) ng/mL Ethyl Alcohol < 10 (0-10) mg/dL Discharge Plan Discharge Patient Disposition: Admitted As Inpatient Clinical Impression: Anxiety Condition: Stable Referrals: Pieter Call [Primary Care Provider] - Coding Level of Care Code ED Cross Tie Turner for Chg Fwd Exam Comprehensive
[2019-10-26] MEDS: LORazepam 1 mg Tablet 2 MG PO (03:43)
[2019-10-26 04:09] LABS: Basophils # 0.1 10^3/uL (0.0-0.1); Basophils % 0.7 %; Eosinophils # 0.1 10^3/uL (0.0-0.8); Eosinophils % 0.9 %; Hematocrit 45.9 % (42.0-52.0); Hemoglobin 14.8 g/dL (11.7-16.6); Lymphocytes # 2.7 10^3/uL (0.8-4.8); Lymphocytes % 26.2 %; Mean Corpuscular HGB Conc 32.2 g/dL (30.0-36.0); Mean Corpuscular Hemoglobin 27.8 pg (28.0-34.0); Mean Corpuscular Volume 86.1 fL (80-94); Mean Platelet Volume 9.3 fL (7.4-10.4); Monocytes # 0.8 10^3/uL (0.2-0.9); Monocytes % 7.8 %; Neutrophils # 6.66 10^3/uL (1.8-7.7); Neutrophils % 64.2 %; Nucleated Red Blood Cells % 0 %; Platelet Count 387 10^3/cmm (130-400); Red Blood Count 5.33 10^6/uL (4.1-5.3); Red Cell Distribution Width 12.5 % (12.1-15.1); White Blood Count 10.4 10^3/uL (4.0-10.0)
[2019-10-26 04:21] LABS: Amphetamines Screen Urine Negative (Negative); Barbiturates Screen Urine Negative (Negative); Benzodiazepines Screen Urine Negative (Negative); Cocaine Screen Urine Negative (Negative); Opiate Screen Urine Negative (Negative); PCP Screen Urine Negative (Negative); THC Screen Urine Negative (Negative)
[2019-10-26 04:30] LABS: Alanine Aminotransferase 23 U/L (0-41); Albumin Level 4.9 g/dL (3.5-5.2); Alkaline Phosphatase 135 IU/L (40-130); Anion Gap 15.9 (5-19); Aspartate Amino Transferase 34 U/L (0-40); Blood Urea Nitrogen 21 mg/dL (6-20); Calcium 9.5 mg/dL (8.5-10.5); Carbon Dioxide 28 mmol/L (22-29); Chloride 100 mmol/L (98-107); Globulin 3.9 g/dL (1.3-4.6); Glomerular Filtration Rate 83.6 mL/min (90-130); Glucose 110 mg/dL (65-115); Osmolality Calculated 287 mOsm/kg (285-295); Potassium 3.9 mmol/L (3.5-5.1); Salicylate 0.7 mg/dL (3-10); Sodium 140 mmol/L (136-145); Total Bilirubin 0.3 mg/dL (0.15-1.2); Total Protein 8.8 g/dL (6.6-8.7)
[2019-10-26 04:39] LABS: Acetaminophen < 5.0 ug/mL (10-30); Alcohol Level < 10 mg/dL (0-10)
[2019-10-26 05:23] VITALS: BP 160/91; PULSE 101; RESP 18; TEMP 36.9; O2SAT 98
[2019-10-26 05:37] VITALS: BP 167/98; PULSE 114; RESP 13; TEMP 36.9; O2SAT 97
[2019-10-26 06:00] VITALS: BP 167/98; PULSE 114; RESP 13; TEMP 36.9; O2SAT 97
--- NOTE | 2019-10-26 06:05 | PC.NURSE ---
Outpatient services through Behavioral Health.
--- NOTE | 2019-10-26 06:12 | PC.NURSE ---
Skin assessment. Scar to left of naval.
[2019-10-26] MEDS: multivitamin therapeutic Tablet 1 TAB PO (08:15)
[2019-10-26] MEDS: cetirizine 10 mg Tablet PO (08:15)
[2019-10-26] MEDS: lamoTRIgine 100 mg Tablet PO (08:15)
[2019-10-26] MEDS: pantoprazole DR 40 mg Tablet PO (08:15)
[2019-10-26] MEDS: lisinopril 10 mg Tablet PO (08:16)
--- NOTE | 2019-10-26 13:34 | PC.RESP ---
Smoking Cessation information and a schedule of classes to patient.
[2019-10-26 14:10] VITALS: BP 116/73; PULSE 84; RESP 18; TEMP 36.7; O2SAT 99
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
--- NOTE | 2019-10-26 21:15 | PC.NURSE ---
PATIENT STATED THAT IT WOULD BE EASIER FOR HIM TO REMEMBER MEDICATIONS IF ORDERED BID
[2019-10-26 22:00] VITALS: BP 112/71; PULSE 75; RESP 17; O2SAT 98
[2019-10-27 06:00] VITALS: BP 135/77; PULSE 78; RESP 14; TEMP 36.5; O2SAT 97
[2019-10-27] MEDS: pantoprazole DR 40 mg Tablet PO (08:21)
[2019-10-27] MEDS: lamoTRIgine 100 mg Tablet PO (08:21)
[2019-10-27] MEDS: lisinopril 10 mg Tablet PO (08:21)
[2019-10-27] MEDS: cetirizine 10 mg Tablet PO (08:21)
[2019-10-27] MEDS: hyDROXYzine 25 mg Capsule 50 MG PO ×3 (08:21→21:06)
[2019-10-27] MEDS: multivitamin therapeutic Tablet 1 TAB PO (08:21)
--- NOTE | 2019-10-27 12:42 | PM.NPN ---
Subjective NPU Subjective: Interval history: Festus presents today reporting that he is doing okay. He is tolerating the increase in the Vistaril fine. He does report that he had been taking Wellbutrin and he was not getting that. We discussed the risks, benefits, and alternatives of restarting the Wellbutrin, but doing 150 mg of the XL in the morning, and he understood and agreed to proceed as is documented in this note. He reports he is still struggling with feeling worn out and tired and is not sleeping great. He reports he is eating better. Mental Status Exam MSE Comments: This is an obese white male with hospital scrubs on with adequate grooming and eye contact. No abnormal movements except for psychomotor retardation. Cooperative with exam and mild acute distress. Speech was decreased rate and volume. Mood described as depressed and anxious but not too bad feeling better compared to yesterday, affect congruent. Thought process organized. Thought content: Patient denied any suicidal or homicidal ideations, there were no delusions reported noted, he denied any auditory or visual hallucinations. Attention and concentration were intact and memory appeared reliable but none were formally tested. He is alert and oriented ?3. Insight and judgment are limited but improving. Vitals/I&O/Wt Last Vital Signs Temp 97.7 F 10/27/19 22:00 Pulse 72 10/27/19 22:00 Resp 17 10/27/19 22:00 BP 131/81 10/27/19 22:00 Pulse Ox 99 10/27/19 22:00 Data NPU : 10/26/19 03:54 10/26/19 03:54 A&P Additional A&P Information (1) Alcohol use disorder: (2) Major depressive disorder, recurrent episode with anxious distress: (3) Adjustment disorder with mixed disturbance of emotions and conduct: (4) Anxiety: This is a 39-year-old white male with history of significant anxiety possible PTSD with recent medication nonadherence who presents reporting that he is overwhelmed and needing to be stabilized. 1. Continue current medication except: Restart the Wellbutrin in the morning. 2. Continue every 15 minute checks for safety. 3. Encourage individual, group and milieu therapy. 4. Encourage exploration of the impact of drinking or other drug use on his current presentation. Involuntary Hold Information 96 Hour Hold: 96 Hour Involuntary Admission: No Attestations NPU Medical Necessity Statement*: Inpatient hospitalization is medically necessary in the clinically appropriate intervention at this time. We will monitor medications and make changes as indicated. Likely length of stay 2-4 days. Coding Level of Care Code Acute Integrated Logistics Support Manager for Katelin Roy
[2019-10-27 13:21] VITALS: BP 138/80; PULSE 74; RESP 20; TEMP 36.6; O2SAT 98
[2019-10-27 22:00] VITALS: BP 131/81; PULSE 72; RESP 17; TEMP 36.5; O2SAT 99
[2019-10-28 06:00] VITALS: BP 152/82; PULSE 66; RESP 16; TEMP 36.7; O2SAT 98
[2019-10-28] MEDS: lamoTRIgine 100 mg Tablet PO (08:18)
[2019-10-28] MEDS: lisinopril 10 mg Tablet PO (08:18)
[2019-10-28] MEDS: hyDROXYzine 25 mg Capsule 50 MG PO ×3 (08:18→20:37)
[2019-10-28] MEDS: pantoprazole DR 40 mg Tablet PO (08:19)
[2019-10-28] MEDS: cetirizine 10 mg Tablet PO (08:19)
[2019-10-28] MEDS: multivitamin therapeutic Tablet 1 TAB PO (08:19)
--- NOTE | 2019-10-28 08:58 | PM.NPN ---
Subjective NPU Subjective: Interval history: Festus presents today reporting that he is really tired. He has not received the Wellbutrin XL yet, but he was looking forward to getting it. He reports that he is frustrated because [employer] appears to have turned off his service even thought he reports he has paid. When he got ahold of them they said something about a fee for insurance that had not been paid, which he does not believe is true, but he is frustrated because his service is off; and he reports that someone from [facility] was supposed to be calling in regards to the situation with custody. He reports that he feels better with the medication thus far, and hopefully he will continue to improve. He reports he is eating fine and sleeping a lot because he is trying to catch up on sleep. Mental Status Exam MSE Comments: This is an obese white male with hospital scrubs on with adequate grooming and eye contact. No abnormal movements except for psychomotor retardation which is starting to improve, cooperative with exam in less distress. Speech was decreased rate and volume. Mood described as anxious but feeling better compared to yesterday, affect congruent. Thought process organized. Thought content: Patient denied any suicidal or homicidal ideations, there were no delusions reported noted, he denied any auditory or visual hallucinations. Attention and concentration were intact and memory appeared reliable but none were formally tested. He is alert and oriented ?3. Insight and judgment are limited but improving. Impulse control are limited. Vitals/I&O/Wt Last Vital Signs Temp 98.1 F 10/28/19 22:00 Pulse 78 10/28/19 22:00 Resp 16 10/28/19 22:00 BP 136/79 10/28/19 22:00 Pulse Ox 99 10/28/19 22:00 Data NPU : 10/26/19 03:54 10/26/19 03:54 A&P Additional A&P Information (1) Alcohol use disorder: (2) Major depressive disorder, recurrent episode with anxious distress: (3) Adjustment disorder with mixed disturbance of emotions and conduct: (4) Anxiety: This is a 39-year-old white male with history of significant anxiety possible PTSD with recent medication nonadherence who presents reporting that he is overwhelmed and needing to be stabilized. 1. Continue current medication. 2. Continue every 15 minute checks for safety. 3. Encourage individual, group and milieu therapy. 4. Encourage exploration of the impact of drinking or other drug use on his current presentation. Involuntary Hold Information 96 Hour Hold: 96 Hour Involuntary Admission: No Attestations NPU Medical Necessity Statement*: Inpatient hospitalization is medically necessary in the clinically appropriate intervention at this time. We will monitor medications and make changes as indicated. Likely length of stay 2-4 days. Coding Level of Care Code Acute Public Aid Eligibility Assistant for Katelin Roy
[2019-10-28] MEDS: buPROPion XL (24 HR) 150 mg Tablet PO (09:42)
[2019-10-28 14:00] VITALS: BP 120/78; PULSE 99; RESP 17; TEMP 37.1
[2019-10-28 22:00] VITALS: BP 136/79; PULSE 78; RESP 16; TEMP 36.7; O2SAT 99
[2019-10-29 06:00] VITALS: BP 118/67; PULSE 69; RESP 18; TEMP 36.7; O2SAT 97
[2019-10-29] MEDS: lisinopril 10 mg Tablet PO (09:28)
[2019-10-29] MEDS: cetirizine 10 mg Tablet PO (09:28)
[2019-10-29] MEDS: lamoTRIgine 100 mg Tablet PO (09:28)
[2019-10-29] MEDS: multivitamin therapeutic Tablet 1 TAB PO (09:28)
[2019-10-29] MEDS: hyDROXYzine 25 mg Capsule 50 MG PO ×3 (09:28→21:21)
[2019-10-29] MEDS: buPROPion XL (24 HR) 150 mg Tablet PO (09:28)
[2019-10-29] MEDS: pantoprazole DR 40 mg Tablet PO (09:29)
--- NOTE | 2019-10-29 10:50 | PM.NPN ---
Subjective NPU Subjective: Interval history: Festus presents today reporting that he is starting to feel better and is focusing more on the fact that he needs to connect with [facility] and try to make sure that he has everything lined up so that he can work on his guardianship of his son. He reports that he starting to feel a little better and that the medications are feeling more effective. He reports eating and sleeping okay. We discussed the possibility of considering discharge tomorrow. Mental Status Exam MSE Comments: This is an obese white male with hospital scrubs on with adequate grooming and eye contact. No abnormal movements except for improving psychomotor retardation, cooperative with exam in no distress. Speech was more normal rate and volume. Mood described as getting better, affect congruent. Thought process organized. Thought content: Patient denied any suicidal or homicidal ideations, there were no delusions reported noted, he denied any auditory or visual hallucinations. Attention and concentration were intact and memory appeared reliable but none were formally tested. He is alert and oriented ?3. Insight and judgment are improving. Impulse control is limited, but improving. Vitals/I&O/Wt Last Vital Signs Temp 98.0 F 10/29/19 06:00 Pulse 69 10/29/19 06:00 Resp 18 10/29/19 06:00 BP 118/67 10/29/19 06:00 Pulse Ox 97 10/29/19 06:00 Weight last 48 hrs Weight 103.022 kg Data NPU : 10/26/19 03:54 10/26/19 03:54 A&P Additional A&P Information (1) Alcohol use disorder: (2) Major depressive disorder, recurrent episode with anxious distress: (3) Adjustment disorder with mixed disturbance of emotions and conduct: (4) Anxiety: This is a 39-year-old white male with history of significant anxiety possible PTSD with recent medication nonadherence who presents reporting that he is overwhelmed and needing to be stabilized. 1. Continue current medication. 2. Continue every 15 minute checks for safety. 3. Encourage individual, group and milieu therapy. 4. Encourage exploration of the impact of drinking or other drug use on his current presentation. Involuntary Hold Information 96 Hour Hold: 96 Hour Involuntary Admission: No Attestations NPU Medical Necessity Statement*: Inpatient hospitalization is medically necessary in the clinically appropriate intervention at this time. We will monitor medications and make changes as indicated. Likely length of stay 1-3 days. Coding Level of Care Code Acute Steam Setter for Katelin Roy
[2019-10-29 14:00] VITALS: BP 109/70; PULSE 85; RESP 17; TEMP 36.8; O2SAT 95
[2019-10-29 22:00] VITALS: BP 115/76; PULSE 85; RESP 16; TEMP 36.8; O2SAT 100
--- NOTE | 2019-10-29 22:30 | PC.NURSE ---
pt given scheduled vistaril and trazodone without difficulty.
[2019-10-30 06:00] VITALS: BP 117/63; PULSE 74; RESP 17; TEMP 36.8; O2SAT 98
--- NOTE | 2019-10-30 06:21 | PC.NURSE ---
pt slept fairly well this night. was woke up when roommate got admited, but soon went back to sleep.
[2019-10-30] MEDS: buPROPion XL (24 HR) 150 mg Tablet PO (08:27)
[2019-10-30] MEDS: lamoTRIgine 100 mg Tablet PO (08:27)
[2019-10-30] MEDS: lisinopril 10 mg Tablet PO (08:27)
[2019-10-30] MEDS: pantoprazole DR 40 mg Tablet PO (08:27)
[2019-10-30] MEDS: multivitamin therapeutic Tablet 1 TAB PO (08:27)
[2019-10-30] MEDS: cetirizine 10 mg Tablet PO (08:27)
[2019-10-30] MEDS: hyDROXYzine 25 mg Capsule 50 MG PO ×2 (08:28→15:38)
[2019-10-30 13:50] VITALS: BP 116/81; PULSE 77; RESP 18; TEMP 36.8; O2SAT 99
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
[2019-10-30 15:38] VITALS: BP 116/81; PULSE 77; RESP 18; TEMP 36.8; O2SAT 99
== END 2019-10-30 16:34 | disposition home or self-care (01) | DRG 885 ==
LOC: ER 04:04 → NP 04:56
PROVIDERS: Emergency Medicine; Admitting Provider Psychiatry & Neurology Psychiatry; Visit Provider Psychiatry & Neurology Psychiatry
DX: F33.8 Other recurrent depressive disorders (principal); R45.851 Suicidal ideations; F41.9 Anxiety disorder, unspecified; F43.25 Adjustment disorder with mixed disturbance of emotions and conduct; Z59.0 Homelessness; Z91.5 Personal history of self-harm; F17.218 Nicotine dependence, cigarettes, with other nicotine-induced disorders; E66.9 Obesity, unspecified; Z68.31 Body mass index [BMI] 31.0-31.9, adult; F10.10 Alcohol abuse, uncomplicated
CPT/HCPCS: 12345; 80053; 80306; 80307; 85025; 99281

== ENCOUNTER → 2019-11-14 14:06 | Outpatient (BNVA) | payer OTHER, SELFPAY | PROVIDERS: Visit Provider Nurse Practitioner Psychiatric/Mental Health | DX: F43.25 Adjustment disorder with mixed disturbance of emotions and conduct (principal) | CPT/HCPCS: 80061; 83036 ==

== ENCOUNTER 2019-11-24 02:56 | Emergency (ER) | payer MEDICARE, MEDICAID, SELFPAY ==
[2019-11-15 11:05] VITALS: BP 148/96
[2019-11-24 03:00] VITALS: BP 136/89; PULSE 91; RESP 16; TEMP 36.7; O2SAT 95; BMI 31.6
--- NOTE | 2019-11-24 03:21 | XR_ITS ---
WS: [id number] Chest with right rib detail, 11/24/2019 Clinical Data: Injury Comparison: None. Findings: The lungs show no nodules, masses, or effusions. The heart is normal. No pneumonia or pneumothorax is seen. The ribs are intact. No rib fractures seen. No subcutaneous emphysema is present. XR/XR ribs RT mn 3V w [id number] Impression: Negative chest with right rib detail.
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
[2019-11-24 04:02] VITALS: BP 143/87; PULSE 87; RESP 18; O2SAT 99
[2019-11-24 06:03] VITALS: BP 123/79; PULSE 78; RESP 16; O2SAT 98
== END 2019-11-24 06:04 | disposition home or self-care (01) ==
PROVIDERS: Emergency Provider Emergency Medicine
DX: S06.0X0A Concussion without loss of consciousness, initial encounter (principal); S22.31XA Fracture of one rib, right side, initial encounter for closed fracture; S02.2XXA Fracture of nasal bones, initial encounter for closed fracture; Y04.2XXA Assault by strike against or bumped into by another person, initial encounter; I10 Essential (primary) hypertension; F17.210 Nicotine dependence, cigarettes, uncomplicated
CPT/HCPCS: 12345; 70450; 70486; 71101; 99281; 99283

== ENCOUNTER → 2020-06-04 09:15 | Outpatient (BNVA) | payer MEDICAID, MEDICARE, SELFPAY ==
[2019-11-15 11:05] VITALS: BP 148/96
== END ==
PROVIDERS: Visit Provider Nurse Practitioner Psychiatric/Mental Health
DX: F33.9 Major depressive disorder, recurrent, unspecified (principal); F41.9 Anxiety disorder, unspecified
CPT/HCPCS: 99214

== ENCOUNTER 2020-06-30 20:45 | Emergency (ER) | payer MEDICARE, MEDICAID, SELFPAY ==
[2019-11-15 11:05] VITALS: BP 148/96
[2020-06-30 21:00] VITALS: BP 138/92; PULSE 112; RESP 18; TEMP 36.6; O2SAT 99; BMI 34.2
--- NOTE | 2020-06-30 21:49 | PC.NURSE ---
Dr. Avery informed pt that he would be discharged. upon hearing this information pt stood up said fuck this place and left the facility. pt left before we could give him his discharge paperwork.
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
== END 2020-06-30 21:53 | disposition home or self-care (01) ==
LOC: ER 21:23
PROVIDERS: Emergency Provider Family Medicine
DX: S01.01XA Laceration without foreign body of scalp, initial encounter (principal); F33.8 Other recurrent depressive disorders; I10 Essential (primary) hypertension; F17.210 Nicotine dependence, cigarettes, uncomplicated; W22.8XXA Striking against or struck by other objects, initial encounter
CPT/HCPCS: 12002; 99281

== ENCOUNTER → 2020-07-02 08:32 | Outpatient (BNVA) | payer MEDICARE, MEDICAID, SELFPAY ==
[2019-11-15 11:05] VITALS: BP 148/96
== END ==
PROVIDERS: Visit Provider Nurse Practitioner Psychiatric/Mental Health
DX: F33.9 Major depressive disorder, recurrent, unspecified (principal); F41.9 Anxiety disorder, unspecified
CPT/HCPCS: 99213

== ENCOUNTER 2020-08-06 00:35 | Emergency (ER) | payer MEDICARE, MEDICAID, SELFPAY ==
[2019-11-15 11:05] VITALS: BP 148/96
[2020-08-06 00:37] VITALS: BP 168/115; PULSE 98; RESP 17; TEMP 37.2; O2SAT 100; BMI 34.2
--- NOTE | 2020-08-06 00:41 | ECG_ITS ---
[facility] Test Date: 2020-08-06 Pat Name: Festus Webber Department: Room: Gender: Male Solution Advisor: : 1980 Requested By: Kwesi Momin Order Number: [id number] Reading MD: JOSE MEEKS Measurements Intervals [place] Rate: 89 P: 47 WY: 149 QRS: 22 QRSD: 96 T: 55 QT: 367 QTc: 447 Interpretive Statements SINUS RHYTHM WITH OCCASIONAL SUPRAVENTRICULAR PREMATURE COMPLEXES Compared to ECG 08/04/2019 14:35:12 No significant changes Electronically Signed On 08-06-2020 18:40:16 CDT by JOSE MEKES [email or web address]
--- NOTE | 2020-08-06 00:41 | XRR_ITS ---
PROCEDURE INFORMATION: Exam: XR Chest Exam date and time: 08/06/2020 12:41 AM Age: 40 years old Clinical indication: Dyspnea; Additional info: SOB TECHNIQUE: Imaging protocol: XR of the chest. Views: 1 view. COMPARISON: CR XR ribs RT mn 3V w CXR1V [id number] 11/24/2019 4:59 AM FINDINGS: Lungs: Unremarkable. No consolidation. Pleural spaces: Unremarkable. No pleural effusion. No pneumothorax. Heart/Mediastinum: Unremarkable. No cardiomegaly. Bones/joints: Unremarkable. XR/XR chest 1V portable [id number] IMPRESSION: No acute findings.
--- NOTE | 2020-08-06 00:45 | W.ED.SOB ---
HPI - SOB/Dyspnea General: Chief Complaint: Shortness of Breath/Dyspnea Stated Complaint: vomited blood/sob/htn Time Seen by Provider: 08/06/20 00:36 Source: patient and EMS Mode of arrival: EMS Limitations: no limitations History of Present Illness: HPI Narrative: 40-year-old male states he started having shortness of breath the last 2 hours. Does have a long psych history along with alcohol abuse and anxiety. He states he was not really feeling anxious but does feel like he cannot get a breath in. Per EMS his pulse ox has been 100%. He denies any chest pain or fever. Patient states on the way here he started become nauseous and did vomit out in the ambulance bay. He states that he did have some slight blood in his vomitus. He denies any abdominal pain and states he no longer feels nauseous after Zofran. He states he still feels like he just cannot get a deep breath in. Denies any cough or fever. Associated symptoms: Reports nausea and vomiting; Deny chest pain or fever(s) Review of Systems Const: Denies: fever(s), chills, body aches or change in appetite Eyes: Denies: blurry vision or eye discomfort ENMT: Denies: throat pain or dental pain Card: Denies: chest pain Resp: Reports: dyspnea GI: Reports: nausea and vomiting : Denies: dysuria Musc: Denies: neck pain or back pain Skin/Breast: Denies: rash Neuro: Denies: headache(s) Psych: Denies: depression Chema/Lymph: Denies: easy bruising All/Imm: Denies: urticaria PFS ED PFSH: Medical History (Updated 08/06/20 @ 01:39 by Kwesi Momin MD) Arthritis History of hypertension History of stomach ulcers Surgical History History of biopsy History of hand surgery Family History Mother Hypertension Father , last year Diabetes Social History Smoking and tobacco status: current every day smoker cigarettes Years cigarettes smoked: 20 [ Other cigarette details: vape as well ] Second hand smoke exposure: Yes Alcohol intake: current Alcohol intake frequency: holidays/special occasions only Desire information about alcohol rehabilitation?: No Adopted: No Caregiver/support person: No Lives independently: Yes Household members: significant other and children Housing: Other Details: Hotel right now Marital status: Single Number of children: 1 Number of grandchildren: 0 Highest education level completed: Some College, No Degree service: No Current occupational status: disabled Pets and animals: Yes Pets & animals: cat(s) and dog(s) History of recent travel: No Leisure activites: music and games Sexually active: Yes Current gender identity: Male Emmy/Anglican: None Financial difficulty paying for basics: Not Very Hard Physical Exam Const: COMMON NORMALS: no acute distress, patient oriented x3 and healthy appearing HENMT: COMMON NORMALS: normocephalic and atraumatic HEAD & SCALP: normocephalic and atraumatic Eye: COMMON NORMALS: Equal, round and reactive pupils present and EOMs intact bilaterally PUPIL: Yes Equal, round and reactive pupils present Neck/C-Spine: COMMON NORMALS: full ROM and supple Chest: COMMONS NORMALS: normal inspection of the chest and normal palpation of entire chest wall Resp: COMMON NORMALS: normal respiratory effort, No retractions, No use of accessory muscles and clear to auscultation bilaterally AUSCULTATION: clear to auscultation bilaterally Cardio: COMMON NORMALS: regular rate, regular rhythm and No murmurs present (Cardio) RATE: regular rate RHYTHM: regular rhythm GI: COMMON NORMALS: Normal to inspection, nondistended, normoactive bowel sounds present, Soft to palpation, non-tender and no masses PALPATION: Yes Soft to palpation Extremity: COMMON NORMALS: normal to inspection and full ROM Neuro: COMMON NORMALS: patient oriented x3, moves all extremities and no focal motor deficits Psych: COMMON NORMALS: mental status grossly normal, Normal thought process present and cooperative THOUGHT PROCESS: Normal thought process present Skin: COMMON NORMALS: no rashes or lesions noted and no wounds GENERAL SKIN EXAM: no rashes or lesions noted Course Vital Signs: Vital signs: Vital Signs Temperature 98.9 F 08/06/20 00:37 Pulse Rate 81 08/06/20 00:47 Respiratory Rate 17 08/06/20 00:47 Blood Pressure 168/115 08/06/20 00:37 Pulse Oximetry 97 08/06/20 00:47 MDM - SOB/Dyspnea MDM Narrative: Medical decision making narrative: Patient presents here with dyspnea that is since resolved. I believe is likely anxiety related. He did have vomiting and his hemoglobin here is normal. Said no blood in his vomitus here. Will prescribe him Zofran for home. He is stable for discharge is to follow-up his PCP and return if worsening. Lab Data: Labs: Lab Results 08/06/20 08/06/20 08/06/20 Range/Units 00:19 00:19 00:19 WBC 8.0 (4.0-10.0) 10^3/ uL RBC 5.19 (4.1-5.3) 10^6/u L Hgb 14.3 (11.7-16.6) g/dL Hct 43.5 (42.0-52.0) % MCV 83.8 (80-94) fL MCH 27.6 L (28.0-34.0) pg MCHC 32.9 (30.0-36.0) g/dL RDW 13.2 (12.1-15.1) % Plt Count 299 (130-400) 10^3/c mm MPV 9.4 (7.4-10.4) fL Neut % (Auto) 59.3 % Lymph % (Auto) 28.8 % [place] % (Auto) 6.9 % Eos % (Auto) 3.0 % Baso % (Auto) 1.0 % Neut # (Auto) 4.71 (1.8-7.7) 10^3/u L Lymph # (Auto) 2.3 (0.8-4.8) 10^3/u L [place] # (Auto) 0.6 (0.2-0.9) 10^3/u L Eos # (Auto) 0.2 (0.0-0.8) 10^3/u L Baso # (Auto) 0.1 (0.0-0.1) 10^3/u L Nucleated RBC % (a uto) 0 % Nucleated RBCs # 0.0 /100WBC D-Dimer <= 0.27 (0-0.59) ug/mIFE U Sodium 138 (136-145) mmol/L Potassium 4.1 (3.5-5.1) mmol/L Chloride 98 (98-107) mmol/L Carbon Dioxide 29 (22-29) mmol/L Anion Gap 15.1 (5-19) BUN 18 (6-20) mg/dL Creatinine 1.1 (0.7-1.2) mg/dL GFR Calculation 74.5 L (90-130) mL/min Glucose 93 (65-115) mg/dL Calculated Osmolal ity 288 (285-295) mOsm/k g Calcium 10.1 (8.5-10.5) mg/dL Total Bilirubin 0.2 (0.15-1.2) mg/dL AST 29 (0-40) U/L ALT 46 H (0-41) U/L Alkaline Phosphata se 176 H (40-130) IU/L Troponin T Baselin e (0-15) ng/L NT-Pro-B Natriuret Pep 34 (0-125) pg/mL Total Protein 7.4 (6.6-8.7) g/dL Albumin 4.8 (3.5-5.2) g/dL Globulin 2.6 (1.3-4.6) g/dL 08/06/20 Range/Units 00:19 WBC (4.0-10.0) 10^3/ uL RBC (4.1-5.3) 10^6/u L Hgb (11.7-16.6) g/dL Hct (42.0-52.0) % MCV (80-94) fL MCH (28.0-34.0) pg MCHC (30.0-36.0) g/dL RDW (12.1-15.1) % Plt Count (130-400) 10^3/c mm MPV (7.4-10.4) fL Neut % (Auto) % Lymph % (Auto) % [place] % (Auto) % Eos % (Auto) % Baso % (Auto) % Neut # (Auto) (1.8-7.7) 10^3/u L Lymph # (Auto) (0.8-4.8) 10^3/u L [place] # (Auto) (0.2-0.9) 10^3/u L Eos # (Auto) (0.0-0.8) 10^3/u L Baso # (Auto) (0.0-0.1) 10^3/u L Nucleated RBC % (a uto) % Nucleated RBCs # /100WBC D-Dimer (0-0.59) ug/mIFE U Sodium (136-145) mmol/L Potassium (3.5-5.1) mmol/L Chloride (98-107) mmol/L Carbon Dioxide (22-29) mmol/L Anion Gap (5-19) BUN (6-20) mg/dL Creatinine (0.7-1.2) mg/dL GFR Calculation (90-130) mL/min Glucose (65-115) mg/dL Calculated Osmolal ity (285-295) mOsm/k g Calcium (8.5-10.5) mg/dL Total Bilirubin (0.15-1.2) mg/dL AST (0-40) U/L ALT (0-41) U/L Alkaline Phosphata se (40-130) IU/L Troponin T Baselin e 6 (0-15) ng/L NT-Pro-B Natriuret Pep (0-125) pg/mL Total Protein (6.6-8.7) g/dL Albumin (3.5-5.2) g/dL Globulin (1.3-4.6) g/dL Imaging Data^: CXR: Attestation: I personally reviewed and interpreted this imaging study as follows: My impression: no acute abnormality EKG Data^: EKG 1: Attestation: I personally reviewed and interpreted this EKG as follows: EKG Interpretation Date: 08/06/20 EKG interpretation time: 00:48 Interpretation: nsr [address] or t wave abnormalities qrs 96 qtc 413 Discharge Plan Discharge Patient Disposition: Home Clinical Impression: Vomiting Qualifiers: Vomiting type: unspecified Vomiting Intractability: non-intractable Nausea presence: with nausea Qualified Code(s): R11.2 - Nausea with vomiting, unspecified Dyspnea Qualifiers: Dyspnea type: unspecified Qualified Code(s): R06.00 - Dyspnea, unspecified Condition: Stable Prescriptions: New ondansetron 4 mg tablet,disintegrating 4 mg PO Q6H PRN (Reason: nausea and vomiting) Qty: 14 RF: 0 No Action imipramine HCl 50 mg tablet 50 mg PO .Nightly 30 Days Qty: 30 RF: 1 hydroxyzine HCl 50 mg tablet 50 mg PO BID PRN (Reason: anxiety) Qty: 30 RF: 1 bupropion HCl 150 mg tablet extended release 24 hr 150 mg PO QAM 30 Days Qty: 30 RF: 1 Prilosec OTC 40 mg PO DAILY Qty: 30 RF: 1 lisinopril 10 mg PO DAILY Qty: 30 RF: 1 Discharge Orders: Discharge ED (Routine); Ordered 08/06/20 Ordered By: Kwesi Momin Discharge Diet: Advance as tolerated Discharge Activity: Resume usual activity Patient Instructions: Acute Nausea and Vomiting (ED), Dyspnea (ED) Coding Level of Care Code ED Epic Analyst for Katelin Fwd Exam Comprehensive
[2020-08-06 00:47] VITALS: PULSE 81; RESP 17; O2SAT 97
[2020-08-06] MEDS: LORazepam 2 mg/mL INJ 1 mL 1 MG IVP (00:47)
[2020-08-06] MEDS: sodium chloride 0.9% 1,000 ML 999 ML IV (00:48)
[2020-08-06 01:03] LABS: D Dimer <= 0.27 ug/mIFEU (0-0.59)
[2020-08-06 01:07] LABS: Troponin(5th) Baseline 6 ng/L (0-15)
[2020-08-06 01:16] LABS: Basophils # 0.1 10^3/uL (0.0-0.1); Eosinophils # 0.2 10^3/uL (0.0-0.8); Hematocrit 43.5 % (42.0-52.0); Hemoglobin 14.3 g/dL (11.7-16.6); Lymphocytes # 2.3 10^3/uL (0.8-4.8); Lymphocytes % 28.8 %; Mean Corpuscular HGB Conc 32.9 g/dL (30.0-36.0); Mean Corpuscular Hemoglobin 27.6 pg (28.0-34.0); Mean Corpuscular Volume 83.8 fL (80-94); Mean Platelet Volume 9.4 fL (7.4-10.4); Monocytes # 0.6 10^3/uL (0.2-0.9); Monocytes % 6.9 %; Neutrophils # 4.71 10^3/uL (1.8-7.7); Neutrophils % 59.3 %; Nucleated Red Blood Cells % 0 %; Platelet Count 299 10^3/cmm (130-400); Red Blood Count 5.19 10^6/uL (4.1-5.3); Red Cell Distribution Width 13.2 % (12.1-15.1)
[2020-08-06 01:17] LABS: Alanine Aminotransferase 46 U/L (0-41); Albumin Level 4.8 g/dL (3.5-5.2); Alkaline Phosphatase 176 IU/L (40-130); Anion Gap 15.1 (5-19); Aspartate Amino Transferase 29 U/L (0-40); Blood Urea Nitrogen 18 mg/dL (6-20); Calcium 10.1 mg/dL (8.5-10.5); Carbon Dioxide 29 mmol/L (22-29); Chloride 98 mmol/L (98-107); Globulin 2.6 g/dL (1.3-4.6); Glomerular Filtration Rate 74.5 mL/min (90-130); Glucose 93 mg/dL (65-115); NT Pro B Type Natriuretic Pept 34 pg/mL (0-125); Osmolality Calculated 288 mOsm/kg (285-295); Potassium 4.1 mmol/L (3.5-5.1); Sodium 138 mmol/L (136-145); Total Bilirubin 0.2 mg/dL (0.15-1.2); Total Protein 7.4 g/dL (6.6-8.7)
[2020-08-06 02:35] VITALS: BP 119/91; PULSE 86; RESP 18; O2SAT 99
== END 2020-08-06 02:37 | disposition home or self-care (01) ==
PROVIDERS: Emergency Provider Emergency Medicine
DX: R11.2 Nausea with vomiting, unspecified (principal); R06.00 Dyspnea, unspecified; I10 Essential (primary) hypertension; F17.210 Nicotine dependence, cigarettes, uncomplicated
CPT/HCPCS: 71045; 80053; 83880; 84484; 85025; 85378; 93005; 96361; 96374; 99284; J2060; J7030

== ENCOUNTER 2020-08-13 18:57 | Emergency (ER) | payer MEDICARE, MEDICAID, SELFPAY ==
[2019-11-15 11:05] VITALS: BP 148/96
[2020-08-13 19:25] VITALS: BP 130/88; PULSE 92; RESP 16; TEMP 36.7; O2SAT 95; BMI 21.6
--- NOTE | 2020-08-13 21:09 | ED_ITS ---
HPI - General Adult General: Chief complaint: General Medical Stated complaint: tired Time Seen by Provider: 08/13/20 21:09 History of Present Illness: HPI narrative: Patient is a 40-year-old male comes to the ED via EMS with fatigue and dizziness. Patient says for the past week he has been having symptoms of extreme fatigue. Today patient said he was not feeling good and went and laid down and his girlfriend said she could not wake him up. She then called EMS and they came out to the house and they were able to wake patient up and they brought him here to the ED. Patient just describes feeling a little bit dizzy and feels really sleepy. Denies any fever, chills, nausea/vomiting, abdominal pain, bladder or bowel symptoms. Patient did say that he started taking propranolol approximately 5 days ago but says that he has been having the same symptoms before this and they remain unchanged. He denies any drug use. Patient denies any thoughts of SI, worsening depression or HI. Associated symptoms: Deny chest pain, dyspnea, headache(s), nausea, rash, palpitations or vomiting Review of Systems Const: Reports: fatigue; Denies: fever(s) or chills Eyes: Denies: change in vision or eye discomfort ENMT: Denies: throat pain, odynophagia, nasal discharge or nasal congestion Card: Denies: chest pain, palpitations, edema, swelling of feet/ankles, dyspnea on exertion or orthopnea Resp: Denies: dyspnea, productive cough or non-productive cough GI: Denies: abdominal pain, nausea, vomiting, diarrhea, constipation or hematochezia : Denies: flank pain, difficulty urinating, dysuria or hematuria Musc: Denies: neck pain, back pain or extremity swelling Skin/Breast: Denies: rash or new lesions Neuro: Reports: dizziness (Off balance); Denies: headache(s), numbness in extremities or weakness in extremities Psych: Reports: anxiety (Chronic but denies any worsening symptoms) and depression (Chronic issue but denies any worsening); Denies: suicidal ideation or homicidal ideation [facility] ED PFSH: Medical History Arthritis History of hypertension History of stomach ulcers Surgical History History of biopsy History of hand surgery Family History Mother Hypertension Father , last year Diabetes Social History Smoking and tobacco status: current every day smoker cigarettes Years cigarettes smoked: 20 [ Other cigarette details: vape as well ] Second hand smoke exposure: Yes Alcohol intake: current Alcohol intake frequency: holidays/special occasions only Desire information about alcohol rehabilitation?: No Adopted: No Caregiver/support person: No Lives independently: Yes Household members: significant other and children Housing: Other Details: Hotel right now Marital status: Single Number of children: 1 Number of grandchildren: 0 Highest education level completed: Some College, No Degree service: No Current occupational status: disabled Pets and animals: Yes Pets & animals: cat(s) and dog(s) History of recent travel: No Leisure activites: music and games Sexually active: Yes Current gender identity: Male Emmy/Church: None Financial difficulty paying for basics: Not Very Hard Physical Exam Const: COMMON NORMALS: no acute distress, patient oriented x3 and alert GENERAL APPEARANCE: cooperative, comfortable and lethargic (Sleepy) ORIENTATION/CONSCIOUSNESS: Yes lethargic (Sleepy) HENMT: COMMON NORMALS: normocephalic HEAD & SCALP: normocephalic MOUTH: Normal oral and palatal mucosa present THROAT: posterior oropharynx normal and uvula midline Eye: COMMON NORMALS: Equal, round and reactive pupils present and conjunctivae normal CONJUNCTIVA: Yes conjunctivae normal PUPIL: Yes Equal, round and reactive pupils present Neck/C-Spine: COMMON NORMALS: supple GENERAL: Yes normal visual inspection Resp: COMMON NORMALS: normal respiratory effort, No retractions, No use of accessory muscles and clear to auscultation bilaterally AUSCULTATION: clear to auscultation bilaterally Cardio: COMMON NORMALS: regular rate, regular rhythm, S1 normal heart sound present, S2 normal heart sound present, No gallops present (Cardio), No clicks present (Cardio), No murmurs present (Cardio) and Peripheral pulses 2+ throughout RATE: regular rate RHYTHM: regular rhythm HEART SOUNDS: S1 normal heart sound present and S2 normal heart sound present PERIPHERAL PULSES: Peripheral pulses 2+ throughout GI: COMMON NORMALS: Normal to inspection, nondistended, normoactive bowel sounds present, Soft to palpation, non-tender and no masses PALPATION: Yes Soft to palpation : COMMON NORMALS: Yes no CVA tenderness BLADDER/KIDNEY EXAM: Yes no CVA tenderness Back/Pelvis: COMMON NORMALS: no CVA tenderness Extremity: COMMON NORMALS: normal to inspection Neuro: COMMON NORMALS: patient oriented x3 and moves all extremities SENSORIUM/ORIENTATION: Yes alert and Yes lethargic (Sleepy) Skin: GENERAL SKIN EXAM: dry skin Course Vital Signs: Vital signs: Vital Signs Temperature 98.1 F 08/13/20 19:25 Pulse Rate 87 08/13/20 22:44 Respiratory Rate 17 08/13/20 22:44 Blood Pressure 127/86 08/13/20 22:44 Pulse Oximetry 97 08/13/20 22:44 MDM - General Adult MDM Narrative: Medical decision making narrative: Patient is a 40-year-old male comes to the ED with fatigue. Symptoms have been going on for the past several weeks. Denies any other symptoms and just says he feels really tired. Exam findings were benign but patient did appear sleepy but was alert and oriented upon exam. Vitals stable. EKG showed normal sinus rhythm with an occasional PVC, but no ST segment elevation or depression noted. CBC, UA and CMP were unremarkable. Urine drug screen was negative. Patient was diagnosed with fatigue and discharged home. He was told to follow-up with his PCP within the next 3 days for reevaluation. Return to ED precautions given. Patient understood agree with plan. Lab Data: Attestation: I reviewed the patient's lab results. Labs: Lab Results 08/13/20 08/13/20 08/13/20 Range/Units 21:40 21:40 21:46 WBC 8.0 (4.0-10.0) 10^3/ uL RBC 5.06 (4.1-5.3) 10^6/u L Hgb 13.6 (11.7-16.6) g/dL Hct 42.2 (42.0-52.0) % MCV 83.4 (80-94) fL MCH 26.9 L (28.0-34.0) pg MCHC 32.2 (30.0-36.0) g/dL RDW 13.2 (12.1-15.1) % Plt Count 287 (130-400) 10^3/c mm MPV 9.1 (7.4-10.4) fL Neut % (Auto) 67.0 % Lymph % (Auto) 21.4 % [place] % (Auto) 7.0 % Eos % (Auto) 3.2 % Baso % (Auto) 0.7 % Neut # (Auto) 5.37 (1.8-7.7) 10^3/u L Lymph # (Auto) 1.7 (0.8-4.8) 10^3/u L [place] # (Auto) 0.6 (0.2-0.9) 10^3/u L Eos # (Auto) 0.3 (0.0-0.8) 10^3/u L Baso # (Auto) 0.1 (0.0-0.1) 10^3/u L Nucleated RBC % (a uto) 0 % Nucleated RBCs # 0.0 /100WBC Sodium 134 L (136-145) mmol/L Potassium 4.2 (3.5-5.1) mmol/L Chloride 99 (98-107) mmol/L Carbon Dioxide 23 (22-29) mmol/L Anion Gap 16.2 (5-19) BUN 16 (6-20) mg/dL Creatinine 0.8 (0.7-1.2) mg/dL GFR Calculation 107.6 (90-130) mL/min Glucose 101 (65-115) mg/dL Calculated Osmolal ity 279 L (285-295) mOsm/k g Calcium 8.7 (8.5-10.5) mg/dL Total Bilirubin 0.2 (0.15-1.2) mg/dL AST 25 (0-40) U/L ALT 31 (0-41) U/L Alkaline Phosphata se 167 H (40-130) IU/L Total Protein 7.4 (6.6-8.7) g/dL Albumin 4.0 (3.5-5.2) g/dL Globulin 3.4 (1.3-4.6) g/dL Urine Color Yellow (Yellow) Urine Appearance Clear (CLEAR) Urine pH 5 (5-7) Ur Specific Gravit y 1.025 (1.005-1.030) Urine Protein Neg (Negative) Urine Glucose (UA) Norm (Normal) Urine Ketones Negative (Negative) Urine Blood Neg (Negative) Urine Nitrate Negative (Negative) Urine Bilirubin Neg (Negative) Urine Urobilinogen Norm (Negative) mg/dL Ur Leukocyte Mariangel ase Negative (Negative) Urine RBC 0-4 H (0-2) /hpf Urine WBC 0-4 H (0-5) /hpf Ur Squamous Epith Cells 0-4 H (0-5) /hpf Amorphous Sediment Not Reportable Urine Bacteria Trace (NONE) /hpf Urine Mucus 3+ /hpf Urine Opiates Scre en (Negative) ng/mL Ur Barbiturates Sc reen (Negative) ng/mL Ur Phencyclidine S crn (Negative) ng/mL Ur Amphetamines Sc reen (Negative) ng/mL U Benzodiazepines Scrn (Negative) ng/mL Urine Cocaine Scre en (Negative) ng/mL U Marijuana (THC) Screen (Negative) ng/mL 08/13/20 Range/Units 21:46 WBC (4.0-10.0) 10^3/ uL RBC (4.1-5.3) 10^6/u L Hgb (11.7-16.6) g/dL Hct (42.0-52.0) % MCV (80-94) fL MCH (28.0-34.0) pg MCHC (30.0-36.0) g/dL RDW (12.1-15.1) % Plt Count (130-400) 10^3/c mm MPV (7.4-10.4) fL Neut % (Auto) % Lymph % (Auto) % [place] % (Auto) % Eos % (Auto) % Baso % (Auto) % Neut # (Auto) (1.8-7.7) 10^3/u L Lymph # (Auto) (0.8-4.8) 10^3/u L [place] # (Auto) (0.2-0.9) 10^3/u L Eos # (Auto) (0.0-0.8) 10^3/u L Baso # (Auto) (0.0-0.1) 10^3/u L Nucleated RBC % (a uto) % Nucleated RBCs # /100WBC Sodium (136-145) mmol/L Potassium (3.5-5.1) mmol/L Chloride (98-107) mmol/L Carbon Dioxide (22-29) mmol/L Anion Gap (5-19) BUN (6-20) mg/dL Creatinine (0.7-1.2) mg/dL GFR Calculation (90-130) mL/min Glucose (65-115) mg/dL Calculated Osmolal ity (285-295) mOsm/k g Calcium (8.5-10.5) mg/dL Total Bilirubin (0.15-1.2) mg/dL AST (0-40) U/L ALT (0-41) U/L Alkaline Phosphata se (40-130) IU/L Total Protein (6.6-8.7) g/dL Albumin (3.5-5.2) g/dL Globulin (1.3-4.6) g/dL Urine Color (Yellow) Urine Appearance (CLEAR) Urine pH (5-7) Ur Specific Gravit y (1.005-1.030) Urine Protein (Negative) Urine Glucose (UA) (Normal) Urine Ketones (Negative) Urine Blood (Negative) Urine Nitrate (Negative) Urine Bilirubin (Negative) Urine Urobilinogen (Negative) mg/dL Ur Leukocyte Mariangel ase (Negative) Urine RBC (0-2) /hpf Urine WBC (0-5) /hpf Ur Squamous Epith Cells (0-5) /hpf Amorphous Sediment Urine Bacteria (NONE) /hpf Urine Mucus /hpf Urine Opiates Scre en Negative (Negative) ng/mL Ur Barbiturates Sc reen Negative (Negative) ng/mL Ur Phencyclidine S crn Negative (Negative) ng/mL Ur Amphetamines Sc reen Negative (Negative) ng/mL U Benzodiazepines Scrn Negative (Negative) ng/mL Urine Cocaine Scre en Negative (Negative) ng/mL U Marijuana (THC) Screen Negative (Negative) ng/mL EKG Data^: EKG 1: Attestation: I personally reviewed and interpreted this EKG as follows: EKG interpretation date: 08/13/20 Interpretation: Sinus rhythm with some occasional premature supraventricular complexes. [address] segment elevation or depression seen. Discharge Plan Discharge Patient Disposition: Home Clinical Impression: Fatigue Qualifiers: Fatigue type: unspecified Qualified Code(s): R53.83 - Other fatigue Condition: Stable Prescriptions: No Action imipramine HCl 50 mg tablet 50 mg PO .Nightly 30 Days Qty: 30 RF: 1 hydroxyzine HCl 50 mg tablet 50 mg PO BID PRN (Reason: anxiety) Qty: 30 RF: 1 bupropion HCl 150 mg tablet extended release 24 hr 150 mg PO QAM 30 Days Qty: 30 RF: 1 Prilosec OTC 40 mg PO DAILY Qty: 30 RF: 1 lisinopril 10 mg PO DAILY Qty: 30 RF: 1 ondansetron 4 mg tablet,disintegrating 4 mg PO Q6H PRN (Reason: nausea and vomiting) Qty: 14 RF: 0 Discharge Orders: Discharge ED (Routine); Ordered 08/13/20 Ordered By: Donn Mullins Referrals: Pieter Call [Primary Care Provider] - Discharge Diet: Regular Discharge Activity: Resume usual activity Patient Instructions: Fatigue (ED) Activity Restrictions/Additional Instructions: Follow-up with medical provider as directed in 3 to 5 days for reevaluation. Continue taking all home medications as prescribed. Return to the ER or your medical provider if condition worsens. Please read and understand discharge instructions. Thank you for choosing [facility] for your healthcare needs today. Please realize this is an emergency room and that we are providing you with a medical screening exam and this may not be complete and all inclusive of all the testing and or work up that you may need to determine your ailment or severity of your illness. It is very important that you follow up as instructed or that you return to the Emergency Department should you have concerns or if your condition changes or worsens in any way. Coding Level of Care Code ED Software Verification Engineer for Katelin Roy Exam Comprehensive
--- NOTE | 2020-08-13 21:18 | ECG_ITS ---
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 Measurements Intervals [place] Rate: 78 P: 51 SD: 144 QRS: 38 QRSD: 97 T: 67 QT: 375 QTc: 429 Interpretive Statements SINUS RHYTHM WITH OCCASIONAL SUPRAVENTRICULAR PREMATURE COMPLEXES Compared to ECG 08/06/2020 00:48:21 No significant changes Electronically Signed On 08-14-2020 0:31:29 CDT by Maximo Garrido M.D. [id number]
[2020-08-13 21:43] LABS: Basophils # 0.1 10^3/uL (0.0-0.1); Basophils % 0.7 %; Eosinophils # 0.3 10^3/uL (0.0-0.8); Eosinophils % 3.2 %; Hematocrit 42.2 % (42.0-52.0); Hemoglobin 13.6 g/dL (11.7-16.6); Lymphocytes # 1.7 10^3/uL (0.8-4.8); Lymphocytes % 21.4 %; Mean Corpuscular HGB Conc 32.2 g/dL (30.0-36.0); Mean Corpuscular Hemoglobin 26.9 pg (28.0-34.0); Mean Corpuscular Volume 83.4 fL (80-94); Mean Platelet Volume 9.1 fL (7.4-10.4); Monocytes # 0.6 10^3/uL (0.2-0.9); Neutrophils # 5.37 10^3/uL (1.8-7.7); Nucleated Red Blood Cells % 0 %; Platelet Count 287 10^3/cmm (130-400); Red Blood Count 5.06 10^6/uL (4.1-5.3); Red Cell Distribution Width 13.2 % (12.1-15.1)
[2020-08-13 21:59] LABS: Alanine Aminotransferase 31 U/L (0-41); Alkaline Phosphatase 167 IU/L (40-130); Anion Gap 16.2 (5-19); Aspartate Amino Transferase 25 U/L (0-40); Blood Urea Nitrogen 16 mg/dL (6-20); Calcium 8.7 mg/dL (8.5-10.5); Carbon Dioxide 23 mmol/L (22-29); Chloride 99 mmol/L (98-107); Globulin 3.4 g/dL (1.3-4.6); Glomerular Filtration Rate 107.6 mL/min (90-130); Glucose 101 mg/dL (65-115); Osmolality Calculated 279 mOsm/kg (285-295); Potassium 4.2 mmol/L (3.5-5.1); Sodium 134 mmol/L (136-145); Total Bilirubin 0.2 mg/dL (0.15-1.2); Total Protein 7.4 g/dL (6.6-8.7)
[2020-08-13 22:12] LABS: Amphetamines Screen Urine Negative (Negative); Barbiturates Screen Urine Negative (Negative); Benzodiazepines Screen Urine Negative (Negative); Bilirubin Urine Neg (Negative); Blood Urine Neg (Negative); Cocaine Screen Urine Negative (Negative); Glucose Urine UA Norm (Normal); Ketones Urine Negative (Negative); Leukocyte Esterase Urine Negative (Negative); Nitrate Urine Negative (Negative); Opiate Screen Urine Negative (Negative); PCP Screen Urine Negative (Negative); Protein Urine Neg (Negative); RBC Urine 0-4 /hpf (0-2); Specific Gravity, Urine 1.025 (1.005-1.030); Squamous Epithelial Cell Urine 0-4 /hpf (0-5); THC Screen Urine Negative (Negative); Urine Appearance Clear (CLEAR); Urine Color Yellow (Yellow); Urobilinogen Urine Norm (Negative); WBC Urine 0-4 /hpf (0-5); pH Urine 5 (5-7)
[2020-08-13 22:13] LABS: Bacteria Urine TRACE /hpf; Mucus Urine 3+ /hpf
[2020-08-13 22:44] VITALS: BP 127/86; PULSE 87; RESP 17; O2SAT 97
== END 2020-08-13 22:44 | disposition home or self-care (01) ==
PROVIDERS: Emergency Provider Physician Assistant; PCP Clinical Nurse Specialist Adult Health
DX: R53.83 Other fatigue (principal); I10 Essential (primary) hypertension; F17.210 Nicotine dependence, cigarettes, uncomplicated; Z79.899 Other long term (current) drug therapy
CPT/HCPCS: 80053; 80306; 81001; 85025; 93005; 99283

== ENCOUNTER → 2020-08-27 07:30 | Outpatient (BNVA) | payer MEDICARE, MEDICAID, SELFPAY ==
[2019-11-15 11:05] VITALS: BP 148/96
== END ==
PROVIDERS: PCP Clinical Nurse Specialist Adult Health; Visit Provider Nurse Practitioner Psychiatric/Mental Health
DX: F33.9 Major depressive disorder, recurrent, unspecified (principal); F41.9 Anxiety disorder, unspecified
CPT/HCPCS: 99214

== ENCOUNTER 2020-09-21 19:24 | Emergency (ER) | payer MEDICARE, MEDICAID, SELFPAY ==
[2019-11-15 11:05] VITALS: BP 148/96
[2020-09-21 19:25] VITALS: BP 125/81; PULSE 119; RESP 18; TEMP 36.7; O2SAT 95; BMI 34.2
[2020-09-21 19:33] VITALS: BP 93/83; PULSE 110; RESP 18; O2SAT 96
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
[2020-09-21 19:59] VITALS: BP 93/83; PULSE 110; RESP 18; TEMP 36.7; O2SAT 96
== END 2020-09-21 20:00 | disposition home or self-care (01) ==
LOC: ER 19:54
PROVIDERS: Emergency Provider Nurse Practitioner Family; PCP Clinical Nurse Specialist Adult Health
DX: K11.7 Disturbances of salivary secretion (principal); T50.905A Adverse effect of unspecified drugs, medicaments and biological substances, initial encounter; I10 Essential (primary) hypertension; F17.210 Nicotine dependence, cigarettes, uncomplicated
CPT/HCPCS: 99281

== ENCOUNTER 2020-09-23 11:44 | Emergency (ER) | payer MEDICARE, MEDICAID, SELFPAY ==
[2019-11-15 11:05] VITALS: BP 148/96
--- NOTE | 2020-09-23 11:57 | ECG_ITS ---
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 Measurements Intervals [place] Rate: 86 P: 21 HI: 121 QRS: 7 QRSD: 98 T: 44 QT: 372 QTc: 447 Interpretive Statements SINUS RHYTHM Compared to ECG 08/13/2020 21:44:42 No significant changes Electronically Signed On 09-23-2020 17:27:45 CDT by Jad Johnston M.D. [email or web address] [facility] medical centerQwilrohio valley [facility].[email or web address] Managed [employer]ing/store/[id number]
--- NOTE | 2020-09-23 11:57 | XRR_ITS ---
PROCEDURE INFORMATION: Exam: XR Chest Exam date and time: 09/23/2020 11:57 AM Age: 40 years old Clinical indication: Pain; Angina pectoris; Additional info: Chest pain TECHNIQUE: Imaging protocol: XR of the chest. Views: 1 view. COMPARISON: CR XR chest 1V portable [id number] 08/06/2020 12:54 AM FINDINGS: Lungs: Unremarkable. No consolidation. Pleural spaces: Unremarkable. No pleural effusion. No pneumothorax. Heart/Mediastinum: Unremarkable. No cardiomegaly. Bones/joints: Unremarkable. XR/XR chest 1V portable [id number] IMPRESSION: No acute findings.
[2020-09-23 12:24] VITALS: BP 143/88; PULSE 108; RESP 16; TEMP 37.1; O2SAT 94
[2020-09-23 12:38] VITALS: BMI 33.7
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
[2020-09-23] MEDS: acetaminophen 325 mg Tablet 650 MG PO (13:00)
[2020-09-23] MEDS: lactated ringers 1,000 ML 999 ML IV (13:01)
[2020-09-23 13:42] LABS: Basophils % 0.4 %; Eosinophils % 0.4 %; Hematocrit 37.7 % (42.0-52.0); Hemoglobin 12.1 g/dL (11.7-16.6); Mean Corpuscular HGB Conc 32.1 g/dL (30.0-36.0); Mean Corpuscular Hemoglobin 27.4 pg (28.0-34.0); Mean Corpuscular Volume 85.5 fL (80-94); Mean Platelet Volume 9.4 fL (7.4-10.4); Monocytes # 0.7 10^3/uL (0.2-0.9); Monocytes % 7.5 %; Neutrophils # 7.89 10^3/uL (1.8-7.7); Neutrophils % 81.3 %; Nucleated Red Blood Cells % 0 %; Platelet Count 269 10^3/cmm (130-400); Red Blood Count 4.41 10^6/uL (4.1-5.3); Red Cell Distribution Width 13.4 % (12.1-15.1); White Blood Count 9.7 10^3/uL (4.0-10.0)
[2020-09-23 13:44] VITALS: BP 136/80; PULSE 82; RESP 14; O2SAT 99
[2020-09-23 13:56] LABS: Alanine Aminotransferase 26 U/L (0-41); Albumin Level 4.1 g/dL (3.5-5.2); Alkaline Phosphatase 115 IU/L (40-130); Aspartate Amino Transferase 32 U/L (0-40); Blood Urea Nitrogen 19 mg/dL (6-20); Calcium 9.1 mg/dL (8.5-10.5); Carbon Dioxide 25 mmol/L (22-29); Chloride 105 mmol/L (98-107); Globulin 2.4 g/dL (1.3-4.6); Glomerular Filtration Rate 74.5 mL/min (90-130); Glucose 81 mg/dL (65-115); Osmolality Calculated 299 mOsm/kg (285-295); Sodium 144 mmol/L (136-145); Total Bilirubin 0.6 mg/dL (0.15-1.2); Total Protein 6.5 g/dL (6.6-8.7)
--- NOTE | 2020-09-23 13:57 | ECG_ITS ---
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 Measurements Intervals [place] Rate: 92 P: 33 [place]: 146 QRS: 1 QRSD: 98 T: 47 QT: 382 QTc: 473 Interpretive Statements SINUS RHYTHM Compared to ECG 09/23/2020 13:17:11 No significant changes Electronically Signed On 09-23-2020 17:30:44 CDT by Jad Johnston M.D. [email or web address] medical centerMagTaguc [id number]
[2020-09-23 14:02] LABS: Troponin(5th) Baseline 10 ng/L (0-15)
[2020-09-23 14:11] VITALS: PULSE 86; O2SAT 99
[2020-09-23 14:12] LABS: Creatine Phosphokinase 530 U/L (39-308)
[2020-09-23] MEDS: sodium chloride 0.9% 1,000 ML 999 ML IV (14:50)
[2020-09-23 15:16] LABS: CKMB 7.1 ng/mL (0-10.4); CKMB Relative Index 1.3 % (0.0-5.3)
[2020-09-23 16:30] LABS: Troponin 5 2HR 10.24 ng/L (0-15); Troponin 5 2HR Delta 0.24 ABS# (0-10)
[2020-09-23 16:44] LABS: Amphetamines Screen Urine Negative (Negative); Barbiturates Screen Urine Negative (Negative); Benzodiazepines Screen Urine Negative (Negative); Cocaine Screen Urine Negative (Negative); Opiate Screen Urine Negative (Negative); PCP Screen Urine Negative (Negative); THC Screen Urine Negative (Negative)
[2020-09-23 16:46] LABS: Creatine Phosphokinase 466 U/L (39-308)
--- NOTE | 2020-09-23 17:57 | ECG_ITS ---
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 Measurements Intervals [place] Rate: 85 P: 13 MN: 144 QRS: -1 QRSD: 100 T: 47 QT: 383 QTc: 456 Interpretive Statements SINUS RHYTHM Compared to ECG 09/23/2020 13:17:11 No significant changes Electronically Signed On 09-23-2020 17:31:03 CDT by Jad Johnston M.D. [email or web address] [email or web address] city hospitalEngagio/store/[id number]
== END 2020-09-23 17:20 | disposition home or self-care (01) ==
PROVIDERS: Physician Assistant; Emergency Provider Emergency Medicine; PCP Clinical Nurse Specialist Adult Health
DX: R07.9 Chest pain, unspecified (principal); T75.4XXA Electrocution, initial encounter; Y35.833A Legal intervention involving a conducted energy device, suspect injured, initial encounter; T07.XXXA Unspecified multiple injuries, initial encounter; R79.9 Abnormal finding of blood chemistry, unspecified; I10 Essential (primary) hypertension; F17.210 Nicotine dependence, cigarettes, uncomplicated; Z79.899 Other long term (current) drug therapy
CPT/HCPCS: 36415; 71045; 80053; 80306; 82550; 82553; 84484; 85025; 93005; 96360; 96361; 99284; J7030

== ENCOUNTER 2021-03-14 17:42 | Emergency (ER) | payer MEDICARE, MEDICAID, SELFPAY ==
[2019-11-15 11:05] VITALS: BP 148/96
[2021-03-14 19:25] VITALS: PULSE 99; RESP 16; TEMP 36.8; O2SAT 100
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
[2021-03-14 21:33] LABS: Basophils # 0.1 10^3/uL (0.0-0.1); Basophils % 1.2 %; Eosinophils # 0.1 10^3/uL (0.0-0.8); Eosinophils % 1.7 %; Hematocrit 41.6 % (42.0-52.0); Hemoglobin 13.8 g/dL (11.7-16.6); Lymphocytes # 1.9 10^3/uL (0.8-4.8); Lymphocytes % 31.3 %; Mean Corpuscular HGB Conc 33.2 g/dL (30.0-36.0); Mean Corpuscular Hemoglobin 28.5 pg (28.0-34.0); Mean Platelet Volume 9.4 fL (7.4-10.4); Monocytes # 0.5 10^3/uL (0.2-0.9); Monocytes % 8.1 %; Neutrophils # 3.41 10^3/uL (1.8-7.7); Neutrophils % 57.5 %; Nucleated Red Blood Cells % 0 %; Platelet Count 300 10^3/cmm (130-400); Red Blood Count 4.84 10^6/uL (4.1-5.3); Red Cell Distribution Width 12.6 % (12.1-15.1); White Blood Count 5.9 10^3/uL (4.0-10.0)
[2021-03-14] MEDS: ondansetron 2 mg/ML SDV 2 mL 4 MG IVP (21:39)
[2021-03-14] MEDS: sodium chloride 0.9% 1,000 ML 999 ML IV (21:39)
[2021-03-14] MEDS: lidocaine 2% viscous 15 ML, aluminum-mag hydrox-simethicon 30 ML, sucralfate oral liq 1 GM PO (21:40)
[2021-03-14] MEDS: LORazepam 2 mg/mL INJ 1 mL 1 MG IVP (21:40)
[2021-03-14 21:54] LABS: Alanine Aminotransferase 33 U/L (0-41); Albumin Level 4.5 g/dL (3.5-5.2); Alkaline Phosphatase 120 IU/L (40-130); Anion Gap 15.9 (5-19); Aspartate Amino Transferase 55 U/L (0-40); Blood Urea Nitrogen 20 mg/dL (6-20); C Reactive Protein 7.8 mg/L (0.0-4.9); Carbon Dioxide 25 mmol/L (22-29); Chloride 100 mmol/L (98-107); Globulin 3.3 g/dL (1.3-4.6); Glomerular Filtration Rate 107.6 mL/min (90-130); Glucose 84 mg/dL (65-115); Lipase 21 U/L (13-60); Osmolality Calculated 286 mOsm/kg (285-295); Potassium 3.9 mmol/L (3.5-5.1); Sodium 137 mmol/L (136-145); Total Bilirubin 0.2 mg/dL (0.15-1.2); Total Protein 7.8 g/dL (6.6-8.7)
[2021-03-14 22:04] LABS: Add Urine Microscopic? NO; Charge for UA Resulting for Rev
[2021-03-14 22:26] LABS: Bilirubin Urine 1+ (Negative); Blood Urine Neg (Negative); Glucose Urine UA Norm (Normal); Ketones Urine Negative (Negative); Leukocyte Esterase Urine Negative (Negative); Nitrate Urine Negative (Negative); Protein Urine Neg (Negative); Specific Gravity, Urine 1.025 (1.005-1.030); Urine Appearance Clear (CLEAR); Urine Color Yellow (Yellow); Urobilinogen Urine 1 mg/dL (Negative); pH Urine 5 (5-7)
[2021-03-14 23:45] VITALS: BP 140/78; PULSE 99; RESP 16; TEMP 36.8; O2SAT 100
[2021-03-16 15:22] LABS: Quest SARS-CoV-2 RNA NOT DETECTED (NOT DETECTED)
--- NOTE | 2021-03-17 19:00 | PC.NURSE ---
Non working number
== END 2021-03-14 23:05 | disposition home or self-care (01) ==
PROVIDERS: Emergency Provider Emergency Medicine; PCP Clinical Nurse Specialist Adult Health
DX: K21.9 Gastro-esophageal reflux disease without esophagitis (principal); I10 Essential (primary) hypertension; F17.210 Nicotine dependence, cigarettes, uncomplicated; Z20.822 Contact with and (suspected) exposure to COVID-19
CPT/HCPCS: 80053; 81003; 83690; 85025; 86140; 87635; 96361; 96374; 96375; 99283; J2060; J2405; J7030

== ENCOUNTER → 2021-03-27 10:13 | Outpatient (BNVA) | payer MEDICARE, MEDICAID, SELFPAY ==
[2019-11-15 11:05] VITALS: BP 148/96
== END ==
PROVIDERS: PCP Clinical Nurse Specialist Adult Health; Visit Provider Nurse Practitioner Psychiatric/Mental Health
DX: F43.25 Adjustment disorder with mixed disturbance of emotions and conduct (principal); F41.9 Anxiety disorder, unspecified
CPT/HCPCS: 99213

== ENCOUNTER → 2021-04-14 15:33 | Outpatient (BNVA) | payer MEDICARE, MEDICAID, SELFPAY ==
[2019-11-15 11:05] VITALS: BP 148/96
== END ==
PROVIDERS: PCP Clinical Nurse Specialist Adult Health; Visit Provider Nurse Practitioner Psychiatric/Mental Health
DX: F43.25 Adjustment disorder with mixed disturbance of emotions and conduct (principal); F41.9 Anxiety disorder, unspecified
CPT/HCPCS: 99214

== ENCOUNTER → 2021-05-13 14:13 | Outpatient (BNVA) | payer MEDICARE, MEDICAID, SELFPAY ==
[2019-11-15 11:05] VITALS: BP 148/96
== END ==
PROVIDERS: PCP Clinical Nurse Specialist Adult Health; Visit Provider Nurse Practitioner Psychiatric/Mental Health
DX: F43.25 Adjustment disorder with mixed disturbance of emotions and conduct (principal); F41.9 Anxiety disorder, unspecified
CPT/HCPCS: 99214

== ENCOUNTER 2021-05-23 04:25 | Inpatient (IN) | payer MEDICARE, MEDICAID, SELFPAY ==
[2019-11-15 11:05] VITALS: BP 148/96
[2021-05-23 04:32] VITALS: BP 166/89; PULSE 82; RESP 16; TEMP 36.7; O2SAT 98; BMI 34.2
--- NOTE | 2021-05-23 04:49 | ED.C_ITS ---
HPI - Psych General: Chief Complaint: Psychiatric Symptoms Stated Complaint: Possible Si Time Seen by Provider: 05/23/21 04:44 Source: patient Mode of arrival: ambulatory Limitations: no limitations History of Present Illness: 41-year-old male who states that he has been having increased depression over the last 3 to 4 days. He states he feels like he needs to be admitted to the psych unit for help before he becomes suicidal he states his last admitted 1 year ago. He denies any active suicidality or homicidality but he voluntarily wants to get help. He states he has had increased life stressors. Denies any worsening improving factors. Associated symptoms: Reports depression Review of Systems Const: Denies: fever(s), chills, body aches or change in appetite Eyes: Denies: blurry vision or eye discomfort ENMT: Denies: throat pain or dental pain Card: Denies: chest pain Resp: Denies: dyspnea GI: Denies: abdominal pain, nausea, vomiting or diarrhea : Denies: dysuria Musc: Denies: neck pain or back pain Skin/Breast: Denies: rash Neuro: Denies: headache(s) Psych: Reports: depression Chema/Lymph: Denies: easy bruising All/Imm: Denies: urticaria PFSH ED PFSH: Medical History (Updated 05/23/21 @ 05:26 by Kwesi Momin MD) Arthritis History of hypertension History of stomach ulcers Surgical History History of biopsy History of hand surgery Family History Mother Hypertension Father , last year Diabetes Social History Smoking and tobacco status: current every day smoker cigarettes Years cigarettes smoked: 20 [ Other cigarette details: vape as well] Second hand smoke exposure: Yes Alcohol intake: current Alcohol intake frequency: holidays/special occasions only Desire information about alcohol rehabilitation?: No Adopted: No Caregiver/support person: No Lives independently: Yes Household members: significant other and children Housing: Other Details: Hotel right now Marital status: Single Number of children: 1 Number of grandchildren: 0 Highest education level completed: Some College, No Degree service: No Current occupational status: disabled Pets and animals: Yes Pets & animals: cat(s) and dog(s) History of recent travel: No Leisure activites: music and games Sexually active: Yes Current gender identity: Male Emmy/Nondenominational: None Financial difficulty paying for basics: Not Very Hard Physical Exam Const: COMMON NORMALS: no acute distress, patient oriented x3 and healthy appearing HENMT: COMMON NORMALS: normocephalic and atraumatic HEAD & SCALP: normocephalic and atraumatic Eye: COMMON NORMALS: Equal, round and reactive pupils present and EOMs intact bilaterally PUPIL: Yes Equal, round and reactive pupils present Neck/C-Spine: COMMON NORMALS: full ROM and supple Chest: COMMONS NORMALS: normal inspection of the chest and normal palpation of entire chest wall Resp: COMMON NORMALS: normal respiratory effort, No retractions, No use of ac cessory muscles and clear to auscultation bilaterally AUSCULTATION: clear to auscultation bilaterally Cardio: COMMON NORMALS: regular rate, regular rhythm and No murmurs present (Cardio) RATE: regular rate RHYTHM: regular rhythm GI: COMMON NORMALS: Normal to inspection, nondistended, normoactive bowel sounds present, Soft to palpation, non-tender and no masses PALPATION: Yes Soft to palpation Extremity: COMMON NORMALS: normal to inspection and full ROM Neuro: COMMON NORMALS: patient oriented x3, moves all extremities and no focal motor deficits Psych: COMMON NORMALS: mental status grossly normal, Normal thought process present and cooperative MOOD & AFFECT: Yes depressed mood THOUGHT PROCESS: Normal thought process present Skin: COMMON NORMALS: no rashes or lesions noted and no wounds GENERAL SKIN EXAM: no rashes or lesions noted Course Vital Signs: Vital signs: Vital Signs Temperature 98.1 F 05/23/21 04:32 Pulse Rate 82 05/23/21 04:32 Respiratory Rate 16 05/23/21 04:32 Blood Pressure 166/89 05/23/21 04:32 Pulse Oximetry 98 05/23/21 04:32 [facility] - Psych Medical Decision Making Patient presents with depression no active suicidality he voluntarily wants to get admit to the psych guillaume. Patient is medically cleared I spoke to Dr. Sierra will admit at this time. Lab Data : 05/23/21 04:45 05/23/21 04:45 Laboratory Results WBC 9.7 10^3/uL (4.0-10.0) 05/23/21 04:45 RBC 4.65 10^6/uL (4.1-5.3) 05/23/21 04:45 Hgb 12.9 g/dL (11.7-16.6) 05/23/21 04:45 Hct 40.3 % (42.0-52.0) L 05/23/21 04:45 MCV 86.7 fl (80-94) 05/23/21 04:45 MCH 27.7 pg (28.0-34.0) L 05/23/21 04:45 MCHC 32.0 g/dL (30.0-36.0) 05/23/21 04:45 RDW 12.9 % (12.1-15.1) 05/23/21 04:45 Plt Count 298 10^3/cmm (130-400) 05/23/21 04:45 MPV 9.0 fL (7.4-10.4) 05/23/21 04:45 Neut % (Auto) 69.6 % 05/23/21 04:45 Lymph % (Auto) 22.8 % 05/23/21 04:45 Butts % (Auto) 6.2 % 05/23/21 04:45 Eos % (Auto) 0.4 % 05/23/21 04:45 Baso % (Auto) 0.5 % 05/23/21 04:45 Neut # (Auto) 6.72 10^3/uL (1.8-7.7) 05/23/21 04:45 Lymph # (Auto) 2.2 10^3/uL (0.8-4.8) 05/23/21 04:45 Butts # (Auto) 0.6 10^3/uL (0.2-0.9) 05/23/21 04:45 Eos # (Auto) 0.0 10^3/uL (0.0-0.8) 05/23/21 04:45 Baso # (Auto) 0.1 10^3/uL (0.0-0.1) 05/23/21 04:45 Nucleated RBC % (auto) 0 % 05/23/21 04:45 Nucleated RBCs # 0.0 /100WBC 05/23/21 04:45 Discharge Plan Discharge Patient Disposition: Admitted As Inpatient Clinical Impression: Depression Qualifiers: Depression Type: unspecified Qualified Code(s): F32.A - Depression, unspecified Condition: Stable Coding Level of Care Code ED Telecom Coordinator for Katelin Fwd Exam Comprehensive
[2021-05-23 04:56] LABS: Basophils # 0.1 10^3/uL (0.0-0.1); Basophils % 0.5 %; Eosinophils % 0.4 %; Hematocrit 40.3 % (42.0-52.0); Hemoglobin 12.9 g/dL (11.7-16.6); Lymphocytes # 2.2 10^3/uL (0.8-4.8); Lymphocytes % 22.8 %; Mean Corpuscular Hemoglobin 27.7 pg (28.0-34.0); Mean Corpuscular Volume 86.7 fl (80-94); Monocytes # 0.6 10^3/uL (0.2-0.9); Monocytes % 6.2 %; Neutrophils # 6.72 10^3/uL (1.8-7.7); Neutrophils % 69.6 %; Nucleated Red Blood Cells % 0 %; Platelet Count 298 10^3/cmm (130-400); Red Blood Count 4.65 10^6/uL (4.1-5.3); Red Cell Distribution Width 12.9 % (12.1-15.1); White Blood Count 9.7 10^3/uL (4.0-10.0)
[2021-05-23 05:38] LABS: Alanine Aminotransferase 22 U/L (0-41); Albumin Level 4.6 g/dL (3.5-5.2); Alkaline Phosphatase 112 IU/L (40-130); Anion Gap 13.6 (5-19); Aspartate Amino Transferase 31 U/L (0-40); Blood Urea Nitrogen 17 mg/dL (6-20); Calcium 9.6 mg/dL (8.5-10.5); Carbon Dioxide 27 mmol/L (22-29); Chloride 102 mmol/L (98-107); Globulin 2.6 g/dL (1.3-4.6); Glomerular Filtration Rate 93.5 mL/min (90-130); Glucose 114 mg/dL (65-115); Osmolality Calculated 290 mOsm/kg (285-295); Potassium 3.6 mmol/L (3.5-5.1); Sodium 139 mmol/L (136-145); Total Bilirubin 0.3 mg/dL (0.15-1.2); Total Protein 7.2 g/dL (6.6-8.7)
[2021-05-23 05:44] LABS: Acetaminophen < 5.0 ug/mL (10-30); Alcohol Level < 10 mg/dL (0-10); Salicylate < 0.3 mg/dL (3-10)
[2021-05-23 05:51] LABS: Amphetamines Screen Urine Negative (Negative); Barbiturates Screen Urine Negative (Negative); Benzodiazepines Screen Urine Negative (Negative); Cocaine Screen Urine Negative (Negative); Opiate Screen Urine Negative (Negative); PCP Screen Urine Negative (Negative); THC Screen Urine Negative (Negative)
[2021-05-23 06:05] VITALS: BP 153/101; PULSE 78; RESP 18; TEMP 36.8; O2SAT 99
--- NOTE | 2021-05-23 06:16 | PC.ADMIT ---
[email or web address] Ketty Otero. #2 Admission Note: patient reports increasing depression the last 3 days due to people who say they are going to be there for me and not to leave aren't there and don't follow through which has significantly increased his stress level. states people don't want to talk to me and are ignoring me. denies SI, HI, auditory, visual, tactile, olfactory hallucinations. states he wants to get help before he becomes suicidal. patient reports a past suicide attempt by overdosing many years ago on seroquel and trazadone. he was admitted here last year for similar complaints. he denies history of alcohol and drug abuse. he has been diagnosed with MDD, RUSSELL, ADHD, bipolar disorder, BPD, intermittent explosive disorder, PTSD. patient also diagnosed with hypertension which he takes lisinopril for. he is a current [facility] patient and has been the last 2 years. patient affect is appropriate to context. The patient,Festus Webber,41 y/o, was given written information regarding hospital policies, unit procedures and contact persons. Patient's smoking status: current every day smoker. Vital Signs - 8 hr 05/23/21 04:32 Temperature 98.1 F Pulse Rate 82 Respiratory Rate 16 Blood Pressure 166/89 Pulse Oximetry 98
[2021-05-23] MEDS: gabapentin 300 mg Capsule PO ×3 (08:52→20:47)
[2021-05-23] MEDS: lisinopril 20 mg Tablet PO (08:52)
[2021-05-23] MEDS: fluoxetine 20 mg Capsule 40 MG PO (08:52)
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
[2021-05-23 14:00] VITALS: BP 134/86; PULSE 78; RESP 18; TEMP 36.7; O2SAT 97
--- NOTE | 2021-05-23 14:13 | PC.SOCIAL ---
Patient attended and participated in group.
[2021-05-23] MEDS: hyDROXYzine 25 mg Capsule 50 MG PO (20:49)
[2021-05-23 21:32] VITALS: BP 119/76; PULSE 69; RESP 16; O2SAT 98
[2021-05-24 05:46] VITALS: BP 144/75; PULSE 69; RESP 18; O2SAT 98
[2021-05-24 05:51] VITALS: BP 144/75; PULSE 69; RESP 18; TEMP 36.7; O2SAT 98
[2021-05-24] MEDS: fluoxetine 20 mg Capsule 80 MG PO (10:08)
[2021-05-24] MEDS: lisinopril 20 mg Tablet PO (10:09)
[2021-05-24] MEDS: gabapentin 300 mg Capsule PO ×3 (10:09→20:27)
[2021-05-24] MEDS: pantoprazole DR 40 mg Tablet PO (10:09)
--- NOTE | 2021-05-24 10:22 | W.PM.NPUPNS ---
Subjective NPU Subjective: He says that he is super calm . That is very unusual for him. He said it started even before he made the decision to come here. He was afraid that he would blow up because he was so calm. He did not want to do that at his friend's house. His friend has a 13-year-old son who respects him and listens to him. He will not listen to his own father. He is trying to talk him into getting into counseling which is a difficult sell. He will have his first dose of Prozac 80 mg today. He is expecting to have some sort of side effects from it. He talked about Zoloft and Abilify making him very irritable before. BuSpar caused him to throw up. Mental Status Exam MSE Comments: This is a 41-year-old overweight male who appears approximately his stated age and is in no acute distress. He is fairly well-groomed and dressed in hospital scrubs. psychomotor activity is mildly increased. He was not pulling at his shirt as he was yesterday. He was frequently fidgeting with his glasses, taking them on and off. Speech is at a regular rate and rhythm, normal volume, good articulation, not pressured. Alert, oriented X3 Attention and concentration is diminished by his report. Memory is intact Mood is depressed. Affect is mildly dysphoric. Thought process is logical and goal-directed. Thought content: Denies auditory and visual hallucinations. No delusions or paranoia are noted. No current suicidal ideation, and no homicidal ideation. Fund of knowledge is average. Insight and judgment appear to be fair. Impulse control is fairly good. Cognition: Patient Appearance: Appropriate Level of Consciousness: Awake, Alert, Appropriate and Follows Commands Patient Cognition Impaired: No Ability to Follow Directions: Good Patient Orientation (long list): Person, Place, Name, Age, Birthday, Month and Year Comprehension Ability: No Impairment Hallucination Type: None Delusion Description: Not Present Thought Process: Flight of Ideas Affect: Affect Description: Appropriate Depressive Symptoms: Back Pain, Crying Spells, Difficulty Concentrating, Difficulty Sleeping, Feelings of Guilt, Feelings of Worthlessness, Hopelessness, Increased Anxiety, Increased Fatigue, Recurrent Thoughts of or Suicide, Unexplained Headaches and Unhappiness Behavior: Patient Behavior: Appropriate Speech Pattern: Clear and Excessive Vitals/I&O/Wt Last Vital Signs Temp 98.1 F 05/24/21 05:51 Pulse 69 05/24/21 05:51 Resp 18 05/24/21 05:51 BP 144/75 05/24/21 05:51 Pulse Ox 98 05/24/21 05:51 Weight last 48 hrs Weight 111.13 kg Data NPU : 05/23/21 04:45 05/23/21 04:45 A&P Assessment and plan (1) Alcohol use disorder: Status: Suspected (2) Major depressive disorder, recurrent episode with anxious distress: Status: Chronic (3) Anxiety: Status: Chronic (4) PTSD (post-traumatic stress disorder): Status: Acute Plan This is a 41-year-old male with a long history of depression and anxiety and irritability. He presents with 2 days of suicidal ideation and feeling he needs to be in the hospital to be safe. Plan: 1. Continue current medication. Increase Prozac to 80 mg daily continue gabapentin 300 mg 3 times daily. 2. Continue every 15 minute checks for safety. 3. Encourage individual, group and milieu therapies. 4. Encourage sober living treatment after discharge at the highest level of care to which he is willing to commit. 5. We will monitor for safety for himself in the community prior to discharge. Involuntary Hold Information 96 Hour Hold: 96 Hour Involuntary Admission: No Attestations NPU Medical Necessity Statement*: Inpatient hospitalization is medically necessary and the clinically appropriate intervention at this time. We will initiate medications and make changes as indicated. Coding Level of Care Code Acute Environmental Health Aide for Katelin Roy Diagnoses Alcohol use disorder Major depressive disorder, recurrent episode with anxious distress F33.9 Anxiety F41.9 PTSD (post-traumatic stress disorder) F43.10
[2021-05-24] MEDS: nicotine 2 mg Gum BUCCAL (13:13)
[2021-05-24 14:00] VITALS: BP 135/79; PULSE 91; RESP 18; TEMP 36.2; O2SAT 96
[2021-05-24] MEDS: hyDROXYzine 25 mg Capsule 50 MG PO ×2 (14:24→20:27)
--- NOTE | 2021-05-24 14:25 | PC.NURSE ---
Addendum entered by Gris To RN 05/24/21 15:36: Vistaril partially effective. Original Note: Prn note patient noted to be very loud and at times inappropriate. He states he felt he is beginning to become agitated. Visatril given for anxiety/agitation.
[2021-05-24] MEDS: acetaminophen 325 mg Tablet 650 MG PO (16:35)
[2021-05-24 19:49] VITALS: BP 134/79; PULSE 70; RESP 18; TEMP 36.7; O2SAT 97
--- NOTE | 2021-05-24 22:22 | PC.NURSE ---
PATIENT REQUESTED MEDICATION FOR ANXIETY. HYDROXYZINE WAS GIVEN.
[2021-05-25 06:00] VITALS: BP 119/81; PULSE 80; RESP 18; TEMP 36.7; O2SAT 98
[2021-05-25] MEDS: gabapentin 300 mg Capsule PO ×3 (08:12→20:42)
[2021-05-25] MEDS: fluoxetine 20 mg Capsule 80 MG PO (08:12)
[2021-05-25] MEDS: lisinopril 20 mg Tablet PO (08:12)
[2021-05-25] MEDS: pantoprazole DR 40 mg Tablet PO (08:12)
[2021-05-25] MEDS: nicotine 2 mg Gum BUCCAL (13:16)
[2021-05-25 14:00] VITALS: BP 133/81; PULSE 84; RESP 17; TEMP 36.8; O2SAT 96
--- NOTE | 2021-05-25 14:37 | P.NPUPN_ITS ---
Subjective NPU Subjective: He says that the gabapentin and Prozac 80 mg seem to be working together to help decrease his anxiety. He is OCD tendencies seem to be less pressured. He is sleeping well. He feels that he is little less hyper about he certainly is still somewhat hyper. He denies any side effects from the Prozac 80 mg. Mental Status Exam MSE Comments: This is a 41-year-old overweight male who appears approximately his stated age and is in no acute distress. He is fairly well- groomed and dressed in hospital scrubs. psychomotor activity is mildly increased. He was pulling at his shirt some but not as much as the first day. He was frequently fidgeting with his glasses, taking them on and off. Speech is at a regular rate and rhythm, normal volume, good articulation, not pressured. Alert, oriented X3 Attention and concentration is diminished by his report. Memory is intact Mood is depressed but better Affect is mildly dysphoric. Thought process is logical and goal-directed. Thought content: Denies auditory and visual hallucinations. No delusions or paranoia are noted. No current suicidal ideation, and no homicidal ideation. Fund of knowledge is average. Insight and judgment appear to be fair. Impulse control is fair. Cognition: Patient Appearance: Appropriate Level of Consciousness: Awake, Alert, Appropriate and Follows Commands Patient Cognition Impaired: No Ability to Follow Directions: Good Patient Orientation (long list): Person, Place, Name, Age, Birthday, Month and Year Comprehension Ability: No Impairment Hallucination Type: None Delusion Description: Not Present Thought Process: Flight of Ideas Affect: Affect Description: Calm Depressive Symptoms: Back Pain, Crying Spells, Difficulty Concentrating, D ifficulty Sleeping, Feelings of Guilt, Feelings of Worthlessness, Hopelessness, Increased Anxiety, Increased Fatigue, Recurrent Thoughts of or Suicide, Unexplained Headaches and Unhappiness Behavior: Patient Behavior: Cooperative Speech Pattern: Clear Vitals/I&O/Wt Last Vital Signs Temp 98.1 F 05/25/21 06:00 Pulse 80 05/25/21 06:00 Resp 18 05/25/21 06:00 BP 119/81 05/25/21 06:00 Pulse Ox 98 05/25/21 06:00 Weight last 48 hrs Weight 103.328 kg Data NPU : 05/23/21 04:45 05/23/21 04:45 A&P Assessment and plan (1) Alcohol use disorder: Status: Suspected (2) Major depressive disorder, recurrent episode with anxious distress: Status: Chronic (3) Anxiety: Status: Chronic (4) PTSD (post-traumatic stress disorder): Status: Acute Plan This is a 41-year-old male with a long history of depression and anxiety and irritability. He presents with 2 days of suicidal ideation and feeling he needs to be in the hospital to be safe. Plan: 1. Continue current medication. Increase Prozac to 80 mg daily continue gabapentin 300 mg 3 times daily. 2. Continue every 15 minute checks for safety. 3. Encourage individual, group and milieu therapies. 4. Encourage sober living treatment after discharge at the highest level of care to which he is willing to commit. 5. We will monitor for safety for himself in the community prior to discharge. Involuntary Hold Information 96 Hour Hold: 96 Hour Involuntary Admission: No Attestations NPU Medical Necessity Statement*: Inpatient hospitalization is medically necessary and the clinically appropriate intervention at this time. We will initiate medications and make changes as indicated. Coding Level of Care Code Acute Sales Manager [place] for Katelin Roy Diagnoses Alcohol use disorder Major depressive disorder, recurrent episode with anxious distress F33.9 Anxiety F41.9 PTSD (post-traumatic stress disorder) F43.10
[2021-05-25] MEDS: blistex lip oint 7 gm Tube 1 APPLIC TOPICAL (16:32)
[2021-05-25 20:25] VITALS: BP 132/85; PULSE 81; RESP 18; TEMP 36.7; O2SAT 98
[2021-05-25] MEDS: hyDROXYzine 25 mg Capsule 50 MG PO (20:42)
[2021-05-26 06:00] VITALS: BP 115/76; PULSE 68; RESP 19; TEMP 36.6; O2SAT 98
[2021-05-26] MEDS: lisinopril 20 mg Tablet PO (08:34)
[2021-05-26] MEDS: pantoprazole DR 40 mg Tablet PO ×2 (08:34→08:36)
[2021-05-26] MEDS: multivitamin therapeutic Tablet 1 TAB PO (08:35)
[2021-05-26] MEDS: fluoxetine 20 mg Capsule 80 MG PO (08:35)
[2021-05-26] MEDS: gabapentin 300 mg Capsule PO ×3 (08:35→20:53)
--- NOTE | 2021-05-26 12:44 | W.PM.NPUPNS ---
Subjective NPU Subjective: He feels like the medications are working fairly well. His anxiety and OCD symptoms are decreased. He does not have any side effects. The rain made him feel uneasy today. He is eating well. He is sleeping well. Mental Status Exam MSE Comments: This is a 41-year-old overweight male who appears approximately his stated age and is in no acute distress. He is fairly well-groomed and dressed in hospital scrubs. psychomotor activity is mildly increased. He was pulling at his shirt collar some but not as much as the first day. He was frequently fidgeting with his glasses, taking them on and off. Speech is at a regular rate and rhythm, normal volume, good articulation, not pressured. Alert, oriented X3 Attention and concentration is diminished by his report. Memory is intact Mood is depressed but better Affect is mildly dysphoric. Thought process is logical and goal-directed. Thought content: Denies auditory and visual hallucinations. No delusions or paranoia are noted. No current suicidal ideation, and no homicidal ideation. Fund of knowledge is average. Insight and judgment appear to be fair. Impulse control is fair. Cognition: Patient Appearance: Appropriate Level of Consciousness: Awake, Alert, Appropriate and Follows Commands Patient Cognition Impaired: No Ability to Follow Directions: Good Patient Orientation (long list): Person, Place, Name, Age, Birthday, Month and Year Comprehension Ability: No Impairment Hallucination Type: None Delusion Description: Not Present Thought Process: Circumstantial Affect: Affect Description: Calm Depressive Symptoms: Back Pain, Crying Spells, Difficulty Concentrating, Difficulty Sleeping, Feelings of Guilt, Feelings of Worthlessness, Hopelessness, Increased Anxiety, Increased Fatigue, Recurrent Thoughts of or Suicide, Unexplained Headaches and Unhappiness Behavior: Patient Behavior: Cooperative Speech Pattern: Clear Vitals/I&O/Wt Last Vital Signs Temp 97.8 F 05/26/21 06:00 Pulse 68 05/26/21 06:00 Resp 19 H 05/26/21 06:00 BP 115/76 05/26/21 06:00 Pulse Ox 98 05/26/21 06:00 Weight last 48 hrs Weight 103.328 kg Data NPU : 05/23/21 04:45 05/23/21 04:45 A&P Assessment and plan (1) Alcohol use disorder: Status: Suspected (2) Major depressive disorder, recurrent episode with anxious distress: Status: Chronic (3) Anxiety: Status: Chronic (4) PTSD (post-traumatic stress disorder): Status: Acute Plan This is a 41-year-old male with a long history of depression and anxiety and irritability. He presents with 2 days of suicidal ideation and feeling he needs to be in the hospital to be safe. Plan: 1. Continue current medication. Increase Prozac to 80 mg daily continue gabapentin 300 mg 3 times daily. 2. Continue every 15 minute checks for safety. 3. Encourage individual, group and milieu therapies. 4. Encourage sober living treatment after discharge at the highest level of care to which he is willing to commit. 5. We will monitor for safety for himself in the community prior to discharge. Involuntary Hold Information 96 Hour Hold: 96 Hour Involuntary Admission: No Attestations NPU Medical Necessity Statement*: Inpatient hospitalization is medically necessary and the clinically appropriate intervention at this time. We will initiate medications and make changes as indicated. Coding Level of Care Code Acute Senior Sql Server Database Developer for Katelin Roy Diagnoses Alcohol use disorder Major depressive disorder, recurrent episode with anxious distress F33.9 Anxiety F41.9 PTSD (post-traumatic stress disorder) F43.10
[2021-05-26 13:33] VITALS: BP 133/81; PULSE 82; RESP 16; TEMP 36.5; O2SAT 96
--- NOTE | 2021-05-26 15:25 | PC.SOCIAL ---
Patient attended and participated in group.
[2021-05-26 19:40] VITALS: BP 134/89; PULSE 79; RESP 18; TEMP 36.3; O2SAT 96
[2021-05-26] MEDS: acetaminophen 325 mg Tablet 650 MG PO (20:52)
[2021-05-26] MEDS: hyDROXYzine 25 mg Capsule 50 MG PO (20:53)
[2021-05-27 06:00] VITALS: BP 122/75; PULSE 77; RESP 18; TEMP 36.4; O2SAT 96
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
--- NOTE | 2021-05-27 08:38 | DCPLANNER ---
IMM completed with pt on 05/27/21 @ 0620. Pt was given a copy of rights and stated he understood rights.
[2021-05-27] MEDS: gabapentin 300 mg Capsule PO ×2 (08:51→12:41)
[2021-05-27] MEDS: multivitamin therapeutic Tablet 1 TAB PO (08:51)
[2021-05-27] MEDS: fluoxetine 20 mg Capsule 80 MG PO (08:52)
[2021-05-27] MEDS: pantoprazole DR 40 mg Tablet PO ×2 (08:52)
[2021-05-27] MEDS: lisinopril 20 mg Tablet PO (08:52)
[2021-05-27 11:03] VITALS: BP 122/75; PULSE 77; RESP 18; TEMP 36.4; O2SAT 96
== END 2021-05-27 12:45 | disposition home or self-care (01) | DRG 885 ==
LOC: ER 05:26 → NP 05:34
PROVIDERS: Admitting Provider Psychiatry & Neurology Psychiatry; Emergency Provider Emergency Medicine; PCP Clinical Nurse Specialist Adult Health; Visit Provider Psychiatry & Neurology Psychiatry
DX: F33.9 Major depressive disorder, recurrent, unspecified (principal); F41.9 Anxiety disorder, unspecified; F17.210 Nicotine dependence, cigarettes, uncomplicated; F90.9 Attention-deficit hyperactivity disorder, unspecified type; G25.81 Restless legs syndrome; F43.10 Post-traumatic stress disorder, unspecified
CPT/HCPCS: 80053; 80306; 80307; 85025; 97150; 97165; 99285

== ENCOUNTER → 2021-05-29 13:42 | Outpatient (BNVA) | payer MEDICARE, MEDICAID, SELFPAY ==
[2019-11-15 11:05] VITALS: BP 148/96
== END ==
PROVIDERS: PCP Clinical Nurse Specialist Adult Health; Visit Provider Counselor Professional
DX: F41.9 Anxiety disorder, unspecified (principal); F43.25 Adjustment disorder with mixed disturbance of emotions and conduct; R45.4 Irritability and anger; F33.9 Major depressive disorder, recurrent, unspecified
CPT/HCPCS: 90834

== ENCOUNTER → 2021-06-10 14:27 | Outpatient (BNVA) | payer MEDICARE, MEDICAID, SELFPAY ==
[2019-11-15 11:05] VITALS: BP 148/96
== END ==
PROVIDERS: Visit Provider Nurse Practitioner Psychiatric/Mental Health
DX: F43.25 Adjustment disorder with mixed disturbance of emotions and conduct (principal); F41.9 Anxiety disorder, unspecified
CPT/HCPCS: 99213

== ENCOUNTER → 2021-07-21 14:48 | Outpatient (BNVA) | payer MEDICARE, MEDICAID, SELFPAY ==
[2019-11-15 11:05] VITALS: BP 148/96
== END ==
PROVIDERS: Visit Provider Nurse Practitioner Psychiatric/Mental Health
DX: F43.10 Post-traumatic stress disorder, unspecified (principal); F43.25 Adjustment disorder with mixed disturbance of emotions and conduct
CPT/HCPCS: 99213